=== PATIENT | female | born 1945 | race Two or more races ===

== ENCOUNTER 2022-04-24 15:41 | Outpatient (REF) | payer MEDICARE, MEDICAID, SELFPAY ==
[2022-04-24 17:01] LABS: Hematocrit 42.2 % (37.0-47.0); Hemoglobin 13.4 g/dl (12.0-16.0); Mean Corpuscular HGB Conc 31.8 g/dl (31.0-35.0); Mean Corpuscular Hemoglobin 27.9 pg (27.0-33.0); Mean Corpuscular Volume 87.9 fL (80.0-98.0); Mean Platelet Volume 8.8 fL (9.4-12.3); Platelet Count 293 X10*3/uL (160-400); Red Cell Distribution Width 13.7 % (11.0-16.0); White Blood Count 4.2 X10*3/uL (4.8-10.8)
[2022-04-24 17:11] LABS: INTERNATIONAL NORM RATIO 3.7 (0.9-1.1); Prothrombin Time 45.1 SEC (10.0-13.1)
[2022-04-24 17:27] LABS: Alanine Aminotransferase 26 U/L (0-31); Albumin Level 4.5 g/dL (3.5-5.0); Alkaline Phosphatase 90 U/L (39-117); Anion Gap 15 (12-20); Aspartate Amino Transferase 26 U/L (5-31); Bilirubin Direct 0.2 mg/dL (0.0-0.5); Bilirubin Total 0.4 mg/dL (0.0-1.0); Blood Urea Nitrogen 22 mg/dL (9-16); Calcium 9.9 mg/dL (8.4-10.2); Carbon Dioxide 30 mmol/L (22-29); Chloride 103 mmol/L (96-108); Estimated Glomerular Filt Rate > 60; Glucose Random 88 mg/dL (60-115); Potassium 4.6 mmol/L (3.3-5.1); Sodium 143 mmol/L (135-145); Total Protein 7.8 g/dL (6.5-8.0)
[2022-04-29 11:41] LABS: Lamotrigine Lamictal 1.9 mcg/mL (4.0-18.0)
== END 2022-04-24 15:42 | disposition home or self-care (01) ==
LOC: HO.LAB 15:41
PROVIDERS: PCP Internal Medicine; Visit Provider Family Medicine
DX: G40.909 Epilepsy, unspecified, not intractable, without status epilepticus (principal); I82.403 Acute embolism and thrombosis of unspecified deep veins of lower extremity, bilateral; Z93.2 Ileostomy status
CPT/HCPCS: 36415; 80048; 80076; 80175; 85027; 85610

== ENCOUNTER 2022-05-03 02:24 | Emergency (ER) | payer MEDICARE, SELFPAY ==
[2022-05-03 02:37] VITALS: BP 130/60; PULSE 80; RESP 17; TEMP 36.7; O2SAT 99; BMI 24.7
--- NOTE | 2022-05-03 02:38 | ED_ITS ---
HPI - Allergic Reaction General Chief complaint: Allergic Reaction Stated complaint: FACE/THROAT PAIN PER EMS Time Seen by Provider: 05/03/22 02:37 Source: patient Mode of arrival: EMS Limitations: no limitations History of Present Illness HPI narrative: 76 yo female with hx of DVT on coumadin, seizures, ileostomy here with c/o waking up and feeling her face was itchy and hot. She also feels like it is swelling - she denies any new exposures. She did move into a new apartment. She washed her clothes yesterday but used the same detergent - new washing machine. complaint: allergic reaction Onset (ago): minute(s) (just prior to arrival) Exposure: unknown Symptoms: rash, itching and facial swelling Severity: mild Treatment prior to arrival: none Previous Allergic Reaction History: none Related Data Previous Rx's Medication Instructions Recorded cetirizine 5 mg tablet 5 mg PO DAILY PRN allergy symptoms 05/03/22 #30 tabs Allergies Allergy/AdvReac Type Severity Reaction Status Date / Time Iodine and Iodide Containing Allergy Unknown ANAPHYLAXIS Verified 05/03/22 02:28 Produc [IODINE AND IODIDE CONTAINING PRODUC] Tetanus Vaccines and Toxoid Allergy Unknown UNK Verified 05/03/22 02:28 [TETANUS VACCINES AND TOXOID] IVP dye Allergy Unknown SOB, oral Uncoded 03/26/17 00:00 swelling tetanus Allergy Unknown severe Uncoded 03/26/17 00:00 local swelling Review of Systems Review of Systems: Constitutional : No Fever, No Chills ENT/Mouth : no oral swelling, No Hoarseness, No Swallowing Difficulty Eyes: No Eye Pain, No Swelling, No Redness Cardiovascular : No Chest Pain, No SOB Respiratory : No Cough, No Sputum, No Wheezing, No Smoke Exposure, No Dyspnea Gastrointestinal : No Nausea, No Vomiting, No Diarrhea, No abdominal Pain Genitourinary : No Dysuria, No Urinary Frequency, No Hematuria Musculoskeletal : No joint pain, No Myalgias, No Joint Swelling Skin : No Skin Lesions, positive rash Neuro : No Weakness, No Numbness, No Headache PMFSH Past Medical History Attestation statement: The following information was validated with the patient. Medical History DVT (deep venous thrombosis) Ileostomy in place Seizure Social History Social History (Updated 05/03/22 @ 02:46 by Brea [place], DO) Patient Tobacco Use Status: Never used Tobacco Physical Exam ED Vital Signs: Vital Signs - 24 hr 05/03/22 02:37 Temperature 98.1 F Pulse Rate 80 Respiratory Rate 17 Blood Pressure 130/60 Pulse Oximetry 99 Oxygen Delivery Method Room Air BMI result Body Mass Index 24.7 Appearance: Alert. Oriented X3. No acute distress. Eyes: Pupils equal, round and reactive to light. ENT: Pharynx normal. erythema on cheeks, eyelids, chin, neck - mild swelling Neck: Normal inspection. Neck supple. CVS: Normal heart rate and rhythm. Pulses normal. Respiratory: No respiratory distress. Breath sounds normal. Abdomen: Soft and nontender. Skin: Skin warm and dry. Normal skin color. Normal skin turgor. Extremities: No lower extremity edema. No calf ttp Neuro: Oriented X 3. No motor deficit. No sensory deficit. Course Course Course Narrative: feels better stable for DC MDM - Allergic Reaction MDM Narrative Medical decision making narrative: 76 yo female with hx of DVT on coumadin, seizures, ileostomy here with rash to face no oral swelling or resp issues - will give pred, pepcid, benadryl cannot think of cause though she is in new building could be chemical in washing machine. Dispo per improvement in ED. Discharge Plan Discharge Clinical Impression: Allergic reaction Qualifiers: Encounter type: initial encounter Qualified Code(s): T78.40XA - Allergy, unspecified, initial encounter Patient Disposition: Home, Self-Care Instructions: General Allergic Reaction (ED) Additional Instructions: return to ED for any worsening symptoms or concerns please monitor what you are using could be new washing machine Prescriptions: New cetirizine 5 mg tablet 5 mg PO DAILY PRN (Reason: allergy symptoms) Qty: 30 0RF
[2022-05-03] MEDS: predniSONE 20 MG TABLET PO (02:48)
[2022-05-03] MEDS: Famotidine 20 MG TABLET PO (02:48)
[2022-05-03] MEDS: diphenhydrAMINE HCL 25 MG TABLET PO (02:48)
== END 2022-05-03 06:29 | disposition home or self-care (01) ==
PROVIDERS: Emergency Provider Emergency Medicine
DX: L50.0 Allergic urticaria (principal); Z79.01 Long term (current) use of anticoagulants; Z79.899 Other long term (current) drug therapy
CPT/HCPCS: 99281; 99283; Q0163

== ENCOUNTER 2022-05-21 16:35 | Outpatient (REF) | payer MEDICARE, MEDICAID, SELFPAY ==
--- NOTE | ~2022-05-21 | US_ITS ---
EXAMINATION: US VENOUS ULTRASOUND WITH DOPPLER LOWER EXTREMITY, BILATERAL CLINICAL INFORMATION: History of blood clots and pain. COMPARISON: Lower extremity venous ultrasound 01/02/2020 TECHNIQUE: Ultrasound of the deep veins is performed from the hip to the calf with compression sonography and color and pulse Doppler assessment. Spectral analysis with color-flow imaging is performed. FINDINGS: RIGHT: Small hypoechoic nonocclusive thrombus that is incompletely pressed along the right popliteal vein. Otherwise, normal venous compression and respiratory variation and augmented flow. The visualized common femoral vein, superficial femoral vein, and profunda femoral vein shows no evidence of deep venous thrombosis. There is no significant popliteal fossa cyst. LEFT: Unable to fully compress left sided veins due to patient discomfort per technologist report. There is small amount of hypoechoic incompletely compressible thrombus in the popliteal vein. Otherwise, normal respiratory variation and augmented flow. The visualized common femoral vein, superficial femoral vein, profunda femoral vein show no evidence of deep venous thrombosis. There is no significant popliteal fossa cyst. If the patient's symptoms persist, followup ultrasound in 5 days 7 days might be of value to exclude proximal propagation from a non-visualized calf vein. US/US venous duplex LE BI IMPRESSION: 1. Exam positive for small amount of nonocclusive DVT in the right and left popliteal veins. This critical result was discussed with Dr. Maricel Ervin, the on-call covering physician at 6:20 PM on 02/02/2022 and it was ascertained that the content and urgency of the report was understood at the time of direct communication. The patient was sent to the emergency department at her request.
[2022-05-21 18:18] LABS: INTERNATIONAL NORM RATIO 4.2 (0.9-1.1); Prothrombin Time 51.4 SEC (10.0-13.1)
== END 2022-05-21 16:36 | disposition home or self-care (01) ==
LOC: HO.US 16:35
PROVIDERS: Internal Medicine Geriatric Medicine; Absent Provider Internal Medicine; PCP Internal Medicine; Visit Provider Emergency Medicine
DX: I82.403 Acute embolism and thrombosis of unspecified deep veins of lower extremity, bilateral (principal)
CPT/HCPCS: 36415; 85610; 93970

== ENCOUNTER 2022-05-21 18:18 | Emergency (ER) | payer MEDICARE, MEDICAID, SELFPAY ==
[2022-05-21 19:25] VITALS: BP 135/75; PULSE 66; RESP 18; TEMP 36.8; O2SAT 99; BMI 26.9
[2022-05-21 20:35] LABS: MANUAL DIFF FLAG NO
[2022-05-21 20:37] LABS: Basophils Percent Auto 0.3 % (0-2); Eosinophils Absolute Auto 0.2 X10*3/uL (0.0-0.4); Eosinophils Percent Auto 4.4 % (0-4); Hematocrit 44.7 % (37.0-47.0); Imm Gran Abs Auto 0.01 X10*3/uL (0.00-0.03); Imm Gran Pct Auto 0.3 % (0.0-0.4); Lymphocytes Absolute Auto 0.7 X10*3/uL (1.2-4.9); Lymphocytes Percent Auto 17.4 % (20-40); Mean Corpuscular HGB Conc 31.3 g/dl (31.0-35.0); Mean Corpuscular Hemoglobin 26.7 pg (27.0-33.0); Mean Corpuscular Volume 85.3 fL (80.0-98.0); Mean Platelet Volume 9.1 fL (9.4-12.3); Monocytes Absolute Auto 0.4 X10*3/uL (0.1-1.2); Monocytes Percent Auto 9.8 % (2-11); Neutrophils Absolute Auto 2.6 x10*3/uL (2.0-8.3); Neutrophils Percent Auto 67.8 % (45-73); Platelet Count 257 X10*3/uL (160-400); Red Blood Count 5.24 X10*6/uL (4.20-5.50); Red Cell Distribution Width 14.1 % (11.0-16.0); White Blood Count 3.9 X10*3/uL (4.8-10.8)
[2022-05-21 20:40] LABS: D Dimer High Sensitivity 166 NG/ML
[2022-05-21 20:52] LABS: Anion Gap 17 (12-20); Blood Urea Nitrogen 20 mg/dL (9-16); Calcium 9.8 mg/dL (8.4-10.2); Carbon Dioxide 25 mmol/L (22-29); Chloride 103 mmol/L (96-108); Estimated Glomerular Filt Rate > 60; Glucose Random 81 mg/dL (60-115); Potassium 4.6 mmol/L (3.3-5.1); Sodium 140 mmol/L (135-145)
[2022-05-21 21:08] LABS: Troponin-I High Sensitivity < 3.5 ng/L (<3.5-17.0)
--- NOTE | 2022-05-22 08:03 | ED.GENADULT ---
HPI - General Adult General Chief complaint: General Medical Stated complaint: +DVT on both legs Time Seen by Provider: 05/22/22 07:58 Source: patient Mode of arrival: ambulatory Limitations: no limitations History of Present Illness HPI narrative: Patient is a 76 year old female presenting to the emergency department today with bilateral lower leg pain. Patient states that she was sent in today by her doctor from the clinic because an ultrasound showed bilateral blood clots in her legs. Patient states that she is already on Coumadin and the last time this happened, she was switched to lovonox. Patient denies any dizziness, lightheadedness, abdominal pain, nausea, vomiting, fever, chills, blurry vision, double vision, loss of vision, chest pain, difficulty breathing, shortness of breath, back pain, night sweats, pain with urination, increased urinary frequency, increased urinary urgency, blood in her urine or stool, syncope or a near syncopal episode, recent trauma or falls, bowel incontinence, bladder incontinence, bowel retention, bladder retention, or any other complaints at this time. Location: left, right and lower extremity Radiation: non-radiation Severity: mild Severity scale (1-10): 3 Quality: dull Pain Consistency: constant Relieving factors: none Exacerbating factors: none Associated symptoms: denies other symptoms Treatments prior to arrival: none Related Data Previous Rx's Medication Instructions Recorded cetirizine 5 mg tablet 5 mg PO DAILY PRN allergy symptoms 05/03/22 #30 tabs enoxaparin 30 mg/0.3 mL 63 mg (0.63 mL) subcut Q12H #3 mL 05/22/22 subcutaneous syringe (Lovenox) Allergies Allergy/AdvReac Type Severity Reaction Status Date / Time Iodine and Iodide Containing Allergy Unknown ANAPHYLAXIS Verified 05/03/22 02:28 Produc [IODINE AND IODIDE CONTAINING PRODUC] Tetanus Vaccines and Toxoid Allergy Unknown UNK Verified 05/03/22 02:28 [TETANUS VACCINES AND TOXOID] IVP dye Allergy Unknown SOB, oral Uncoded 03/26/17 00:00 swelling tetanus Allergy Unknown severe Uncoded 03/26/17 00:00 local swelling Review of Systems Constitutional: Constitutional: Reports no additional constitutional complaints, Denies chills, Denies fever(s) and Denies night sweats Eyes: Eyes: Reports no additional eye complaints, Denies blurry vision, Denies change in vision, Denies diplopia, Denies eye discharge, Denies loss of vision and Denies eye pain ENT: Denies dizziness Cardiovascular: Cardiovascular: Reports no additional cardiovascular complaints, Denies chest pain, Denies lightheadedness, Denies Loss of Consciousness and Denies dyspnea Respiratory: Respiratory: Reports no additional respiratory complaints and Denies dyspnea Gastrointestinal: Gastrointestinal: Reports no additional gastrointestinal complaints, Denies abdominal pain, Denies melena, Denies hematochezia, Denies change in bowel habits and Denies change in stool character Genitourinary: Genitourinary: Denies hematuria, Denies urinary frequency, Denies dysuria, Denies urinary incontinence, Denies urinary hesitancy and Denies urinary urgency Musculoskeletal: Musculoskeletal: Reports no additional musculoskeletal complaints, Denies numbness and Denies tingling Comments: bilateral lower leg pain Neurologic: Denies dizziness, Denies loss of vision, Denies numbness and Denies tingling Psychiatric: Psychiatric: Reports no additional psychiatric complaints Endocrine: Endocrine: Reports no additional endocrine complaints Hematologic/Lymphatic: Hematologic/Lymphatic: Reports no additional hematologic/lymphatic complaints Allergic/Immunologic: Allergic/Immunologic: Reports no additional allergic/immunologic complaints PMFSH Past Medical History Attestation statement: The following information was validated with the patient. Source: old records reviewed Medical History DVT (deep venous thrombosis) Ileostomy in place Seizure Social History Social History Patient Tobacco Use Status: Never used Tobacco Advance Directives: No Advance Directives Information Provided: Yes Physical Exam ED Vital Signs: Vital Signs - 24 hr 05/21/22 19:25 Temperature 98.2 F Pulse Rate 66 Respiratory Rate 18 Blood Pressure 135/75 Pulse Oximetry 99 Oxygen Delivery Method Room Air BMI result Body Mass Index 26.9 Const General: cooperative, no acute distress, alert and awake Nutritional Appearance: well nourished Orientation/consciousness: patient oriented x3 Limitations: no limitations HENMT Head: Yes normal to inspection and Yes atraumatic Ears: hearing grossly normal bilaterally and external ears normal General nose exam: Normal external nose present, no nasal discharge noted and no epistaxis Face and sinus: Yes normal facial exam, No abrasion and No laceration Mouth: Normal oral and palatal mucosa present, no drooling and no muffled voice Eyes General: appearance normal, both eyes and all related structures Periorbital: periorbital findings normal Eyelids: Yes eyelids normal Conjunctivae: conjunctivae normal Pupils: Equal, round and reactive pupils present EOM: EOMs intact bilaterally Neck Neck: Yes normal visual inspection, Yes full ROM and Yes no lymphadenopathy Chest Chest palpation & inspection: normal inspection of the chest Resp Effort & Inspection: normal respiratory effort Auscultation: clear to auscultation bilaterally Cardio Rate: regular rate Rhythm: regular rhythm GI Inspection: Yes normal to inspection Neuro General: patient oriented x3 and moves all extremities Cranial nerves: Yes Equal, round and reactive pupils present Cognition (Neuro): normal cognition Motor exam (neuro): 5/5 motor strength present throughout Sensory Exam: Normal double simultaneous stimulation for sensation Coordination: [id number] test normal Extrem Other: bilateral lower leg erythema General: Yes full ROM and Yes capillary refill normal Psych Appearance: grossly normal Mental Status: mental status grossly normal Affect: normal affect Attitude: cooperative Thought process: Normal thought process present Thought content: Normal thought content present Insight: Good insight present (Psych) Medical Decision Making MDM Narrative Medical decision making narrative: Patient is a 76 year old female presenting to the emergency department today with bilateral DVTs in her lower legs. Patient's physical exam showed erythema to the lower legs but was otherwise unremarkable. Patient's blood work showed an INR of 4.1 but it was otherwise unremarkable. Patient's bilateral lower leg US from yesterday showed small amount of non occlusive DVT in the right and left popliteal veins. Spoke to the casino floor supervisor convertible top installer who recommended the patient stop Coumadin and be started on lovenox 1mg/kg BID with follow up with the patient's casino floor supervisor within 1 week. I explained my physical exam findings as well as all test results to the patient. I answered all questions asked by the patient. I stressed the importance of the patient taking her medication as prescribed. I stressed the importance of the patient following up with her primary care provider and her casino floor supervisor. I stressed the importance of the patient returning to the emergency department immediately if her symptoms were to worsen or if she were to develop any dizziness, shortness of breath, difficulty breathing, chest pain, blurry vision, loss of vision, nausea, vomiting, abdominal pain, fever, chills, back pain, or any other complaints. Patient verbalized agreement and understanding with this treatment plan and discharge. Medical Records Medical records reviewed: Yes I reviewed the patient's medical records. Lab Data Lab results reviewed: Yes I reviewed the patient's lab results. Result diagrams: 05/21/22 19:42 05/21/22 19:42 Labs: Lab Results 05/21/22 05/21/22 05/21/22 Range/Units 19:42 19:42 19:42 WBC 3.9 L (4.8-10.8) X10*3/uL RBC 5.24 (4.20-5.50) X10*6/uL Hgb 14.0 (12.0-16.0) g/dl Hct 44.7 (37.0-47.0) % MCV 85.3 (80.0-98.0) fL MCH 26.7 L (27.0-33.0) pg MCHC 31.3 (31.0-35.0) g/dl RDW 14.1 (11.0-16.0) % Plt Count 257 (160-400) X10*3/uL MPV 9.1 L (9.4-12.3) fL Immature Gran % (Auto) 0.3 (0.0-0.4) % Neut % (Auto) 67.8 (45-73) % Lymph % (Auto) 17.4 L (20-40) % Barber % (Auto) 9.8 (2-11) % Eos % (Auto) 4.4 H (0-4) % Baso % (Auto) 0.3 (0-2) % Lymph # (Auto) 0.7 L (1.2-4.9) X10*3/uL Barber # (Auto) 0.4 (0.1-1.2) X10*3/uL Eos # (Auto) 0.2 (0.0-0.4) X10*3/uL Baso # (Auto) 0.0 (0.0-0.2) X10*3/uL Abs Immat Gran (auto) 0.01 (0.00-0.03) X10*3/uL Absolute Neuts (auto) 2.6 (2.0-8.3) x10*3/uL Absolute Nucleated RBC 0.000 (0.0-0.012) X10*3/uL Nucleated RBC % (auto) 0.0 (0.0-0.2) /100WBC PT 50.5 H (10.0-13.1) SEC INR 4.1 H (0.9-1.1) D-Dimer High Sensitivty 166 NG/ML Sodium 140 (135-145) mmol/L Potassium 4.6 (3.3-5.1) mmol/L Chloride 103 (96-108) mmol/L Carbon Dioxide 25 (22-29) mmol/L Anion Gap 17 (12-20) BUN 20 H (9-16) mg/dL Creatinine 0.79 (0.5-1.4) mg/dL Estim Creat Clear Calc 50.0 Estimated GFR > 60 Random Glucose 81 (60-115) mg/dL Calcium 9.8 (8.4-10.2) mg/dL Total Bilirubin 0.2 (0.0-1.0) mg/dL Direct Bilirubin < 0.2 (0.0-0.5) mg/dL AST 31 (5-31) U/L ALT 20 (0-31) U/L Alkaline Phosphatase 96 (39-117) U/L Troponin I High Sens (<3.5-17.0) ng/L Total Protein 8.2 H (6.5-8.0) g/dL Albumin 4.7 (3.5-5.0) g/dL 05/21/22 Range/Units 19:42 WBC (4.8-10.8) X10*3/uL RBC (4.20-5.50) X10*6/uL Hgb (12.0-16.0) g/dl Hct (37.0-47.0) % MCV (80.0-98.0) fL MCH (27.0-33.0) pg MCHC (31.0-35.0) g/dl RDW (11.0-16.0) % Plt Count (160-400) X10*3/uL MPV (9.4-12.3) fL Immature Gran % (Auto) (0.0-0.4) % Neut % (Auto) (45-73) % Lymph % (Auto) (20-40) % Barber % (Auto) (2-11) % Eos % (Auto) (0-4) % Baso % (Auto) (0-2) % Lymph # (Auto) (1.2-4.9) X10*3/uL Barber # (Auto) (0.1-1.2) X10*3/uL Eos # (Auto) (0.0-0.4) X10*3/uL Baso # (Auto) (0.0-0.2) X10*3/uL Abs Immat Gran (auto) (0.00-0.03) X10*3/uL Absolute Neuts (auto) (2.0-8.3) x10*3/uL Absolute Nucleated RBC (0.0-0.012) X10*3/uL Nucleated RBC % (auto) (0.0-0.2) /100WBC PT (10.0-13.1) SEC INR (0.9-1.1) D-Dimer High Sensitivty NG/ML Sodium (135-145) mmol/L Potassium (3.3-5.1) mmol/L Chloride (96-108) mmol/L Carbon Dioxide (22-29) mmol/L Anion Gap (12-20) BUN (9-16) mg/dL Creatinine (0.5-1.4) mg/dL Estim Creat Clear Calc Estimated GFR Random Glucose (60-115) mg/dL Calcium (8.4-10.2) mg/dL Total Bilirubin (0.0-1.0) mg/dL Direct Bilirubin (0.0-0.5) mg/dL AST (5-31) U/L ALT (0-31) U/L Alkaline Phosphatase (39-117) U/L Troponin I High Sens < 3.5 (<3.5-17.0) ng/L Total Protein (6.5-8.0) g/dL Albumin (3.5-5.0) g/dL Imaging Data Venous US: Attestation: I personally reviewed and interpreted this imaging study as follows: My impression: Bilateral popliteal DVTs Radiologist's impression: EXAMINATION:? US VENOUS ULTRASOUND WITH DOPPLER LOWER EXTREMITY, BILATERAL CLINICAL INFORMATION:? History of blood clots and pain. COMPARISON:? Lower extremity venous ultrasound 01/02/2020 TECHNIQUE: Ultrasound of the deep veins is performed from the hip to the calf with compression sonography and color and pulse Doppler assessment. Spectral analysis with color-flow imaging is performed. FINDINGS: RIGHT: Small hypoechoic nonocclusive thrombus that is incompletely pressed along the right popliteal vein. Otherwise, normal venous compression and respiratory variation and augmented flow. The visualized common femoral vein, superficial femoral vein, and profunda femoral vein shows no evidence of deep venous thrombosis. ? There is no significant popliteal fossa cyst. LEFT: Unable to fully compress left sided veins due to patient discomfort per technologist report. There is small amount of hypoechoic incompletely compressible thrombus in the popliteal vein. Otherwise, normal respiratory variation and augmented flow. The visualized common femoral vein, superficial femoral vein, profunda femoral vein show no evidence of deep venous thrombosis. ? There is no significant popliteal fossa cyst. If the patient's symptoms persist, followup ultrasound in 5 days 7 days might be of value to exclude proximal propagation from a non-visualized calf vein. US/US venous duplex LE BI IMPRESSION: ? 1. Exam positive for small amount of nonocclusive DVT in the right and left popliteal veins. ? This critical result was discussed with Dr. Maricel Ervin, the on-call covering physician at 6:20 PM on 02/02/2022 and it was ascertained that the content and urgency of the report was understood at the time of direct communication. The patient was sent to the emergency department at her request. Dictated By: Luis Manuel Rodas Signed By: Electronically signed by Luis Manuel Rodas 05/21/22 1823 Discharge Plan Discharge Clinical Impression: DVT (deep venous thrombosis) Patient Disposition: Home, Self-Care Instructions: Deep Vein Thrombosis (ED) Additional Instructions: STOP taking your Coumadin. Follow up with your casino floor supervisor (blood doctor) in 1 week Follow up with your primary care provider. Return to the emergency department immediately if your symptoms worsen or if you develop any dizziness, shortness of breath, difficulty breathing, chest pain, blurry vision, loss of vision, nausea, vomiting, abdominal pain, fever, chills, back pain, or any other complaints. Prescriptions: New enoxaparin [Lovenox] 30 mg/0.3 mL syringe 63 mg subcut Q12H Qty: 3 0RF No Action cetirizine 5 mg tablet 5 mg PO DAILY PRN (Reason: allergy symptoms) Qty: 30 0RF Referrals: [facility] [place]] (Call to establish and follow up with a primary care provider. If you already have a primary care provider, please follow up with them. ) [facility] [place] [facility] [Provider Group] (Call to establish and follow up with a primary care provider. If you already have a primary care provider, please follow up with them. ) [facility] [place] [facility] [Provider Group] (Call to establish and follow up with a primary care provider. If you already have a primary care provider, please follow up with them. ) Interventions: ED Discharge Assessment Last Done: 05/22/22 10:12 Discharge Date/Time: 05/22/22 10:22 Print Language: Tajik
[2022-05-22 08:35] LABS: Alanine Aminotransferase 20 U/L (0-31); Albumin Level 4.7 g/dL (3.5-5.0); Alkaline Phosphatase 96 U/L (39-117); Aspartate Amino Transferase 31 U/L (5-31); Bilirubin Direct < 0.2 mg/dL (0.0-0.5); Bilirubin Total 0.2 mg/dL (0.0-1.0); Total Protein 8.2 g/dL (6.5-8.0)
[2022-05-22 09:05] LABS: INTERNATIONAL NORM RATIO 4.1 (0.9-1.1); Prothrombin Time 50.5 SEC (10.0-13.1)
== END 2022-05-22 10:22 | disposition home or self-care (01) ==
PROVIDERS: Physician Assistant Medical; Emergency Provider Emergency Medicine Emergency Medical Services
DX: I82.433 Acute embolism and thrombosis of popliteal vein, bilateral (principal); M79.662 Pain in left lower leg; M79.661 Pain in right lower leg; Z79.899 Other long term (current) drug therapy
CPT/HCPCS: 36415; 80048; 80076; 84484; 85025; 85379; 85610; 99282; 99283

== ENCOUNTER → 2022-05-27 13:45 | Outpatient (BNVA) | payer MEDICARE, MEDICAID, SELFPAY | PROVIDERS: PCP Registered Nurse; Visit Provider Internal Medicine | DX: I82.403 Acute embolism and thrombosis of unspecified deep veins of lower extremity, bilateral (principal); Z79.01 Long term (current) use of anticoagulants; Z51.81 Encounter for therapeutic drug level monitoring | CPT/HCPCS: 85610; 99202 ==

== ENCOUNTER → 2022-05-29 13:48 | Outpatient (BNVA) | payer MEDICARE, MEDICAID, SELFPAY | PROVIDERS: PCP Registered Nurse; Visit Provider Internal Medicine | DX: I82.403 Acute embolism and thrombosis of unspecified deep veins of lower extremity, bilateral (principal); Z79.01 Long term (current) use of anticoagulants; Z51.81 Encounter for therapeutic drug level monitoring | CPT/HCPCS: 85610; 99211 ==

== ENCOUNTER 2022-05-30 12:00 | Emergency (ER) | payer MEDICARE, MEDICAID, SELFPAY ==
--- NOTE | ~2022-05-30 | CT_ITS ---
EXAMINATION: CT OF THE HEAD WITHOUT CONTRAST and chest one view PORTABLE CLINICAL INFORMATION: Dizziness COMPARISON: None. TECHNIQUE: Noncontrast CT scan of the head was obtained from the base of the skull to the vertex. Chest portable semiupright view This CT examination was performed using dose optimization techniques as appropriate, variously including the following: *Automated exposure control *Adjustment of mA and/or kV according to patient size (this includes techniques or standardized protocols for targeted exams where dose is matched to indication/reason for exam; i.e. extremities or head) *Use of iterative reconstruction technique DLP: 571 mGy-cm FINDINGS: Lungs are clear. Heart images are normal. No infiltrate or CHF. No pleural disease. No ectopic air. The ventricles and cisterns are normal in size, shape and configuration. Chronic white matter ischemic changes. No acute findings. There are no extra-axial surface collections or evidence of hemorrhage. Midline structures are central. The rao/white differentiation is maintained. The orbits appear normal bilaterally. The paranasal sinuses are clear. No fractures are seen. CT/CT head/brain wo IV con IMPRESSION: No active chest disease. No acute intracranial abnormality.
[2022-05-30 12:32] VITALS: BP 114/76; PULSE 88; O2SAT 98; BMI 26.4
[2022-05-30 13:19] VITALS: BP 113/55; PULSE 70; RESP 18; TEMP 36.9; O2SAT 99
--- NOTE | 2022-05-30 13:29 | ECG_ITS ---
Test Reason : DIZZINESS Blood Pressure : / mmHG Vent. Rate : 068 BPM Atrial Rate : 068 BPM P-R Int : 162 ms QRS Dur : 086 ms QT Int : 372 ms P-R-T Axes : 043 019 024 degrees QTc Int : 395 ms Normal sinus rhythm Normal ECG No previous ECGs available Referred By: Ines Garcia Electronically Signed By:MANUELA ANDREW MD
--- NOTE | 2022-05-30 13:58 | ED.GENADULT ---
HPI - General Adult General Chief complaint: Dizziness <KRYSTLE Funez Last Filed: 05/30/22 17:39> Stated complaint: dizziness <KRYSTLE Funez Last Filed: 05/30/22 17:39> Time Seen by Provider: 05/30/22 12:20 <KRYSTLE Funez Last Filed: 05/30/22 17:39> Source: patient <KRYSTLE Funez Last Filed: 05/30/22 17:39> Mode of arrival: ambulatory <KRYSTLE Funez Last Filed: 05/30/22 17:39> History of Present Illness HPI narrative: 76-year-old female with a past medical history of bilateral DVT on Lovenox, seizure, ileostomy, presenting to the ED via EMS complaining of sudden onset dizziness while in the kitchen this morning around 9:00AM, states symptoms lasted few seconds with symptomatic improvement at present. Denies associated headache, vision change/loss, nausea/vomiting, weakness, abdominal pain, numbness, tingling <KRYSTLE Funez Last Filed: 05/30/22 17:39> Onset (ago): hour(s) <KRYSTLE Funez Last Filed: 05/30/22 17:39> Related Data Home medications: Home Medications Medication Instructions Recorded Confirmed lamotrigine 25 mg tablet 25 mg PO BID 05/27/22 05/27/22 warfarin 5 mg tablet 5 mg PO DAILY 05/27/22 05/29/22 Previous Rx's Medication Instructions Recorded enoxaparin 30 mg/0.3 mL 63 mg subcut Q12H #3 mL 05/22/22 subcutaneous syringe (Lovenox) <KRYSTLE Funez Last Filed: 05/30/22 17:39> Allergies/adverse reactions: Allergies Allergy/AdvReac Type Severity Reaction Status Date / Time Iodine and Iodide Containing Allergy Unknown ANAPHYLAXIS Verified 05/29/22 13:51 Produc [IODINE AND IODIDE CONTAINING PRODUC] Tetanus Vaccines and Toxoid Allergy Unknown UNK Verified 05/29/22 13:51 [TETANUS VACCINES AND TOXOID] IVP dye Allergy Unknown SOB, oral Uncoded 05/29/22 13:51 swelling tetanus Allergy Unknown severe Uncoded 05/29/22 13:51 local swelling <KRYSTLE Funez - Last Filed: 05/30/22 17:39> Review of Systems Review of Systems: Constitutional: No Fever, No Chills, No Night Sweats, No Fatigue, No Malaise ENT/Mouth: No Ear Pain, No sore throat, No Rhinorrhea, No Swallowing Difficulty Eyes: No Eye Pain, No Swelling, No Redness, No Discharge, No Vision Changes Cardiovascular: No Chest Pain, No SOB, No Dyspnea on Exertion, No Orthopnea, No Edema, No Palpitations Respiratory: No Cough, No Sputum, No Wheezing, No Dyspnea Gastrointestinal: No Nausea, No Vomiting, No Diarrhea, No Constipation, No Abdominal pain Genitourinary: No Dysuria, No Urinary Frequency, No Hematuria, No Urinary Incontinence/retention, No Flank Pain Musculoskeletal: No joint pain, No Myalgias, No Joint Swelling Skin: No Skin Lesions, No rash Neuro: No Weakness, No Numbness, No Paresthesias, No Loss of Consciousness, + Dizziness, No Headache P <KRYSTLE Funez - Last Filed: 05/30/22 17:39> Yes all other systems are reviewed and are negative <KRYSTLE Funez - Last Filed: 05/30/22 17:39> Constitutional: Constitutional: Reports as per HPI <KRYSTLE Funez - Last Filed: 05/30/22 17:39> Neurologic: Denies Abnormal speech present <KRYSTLE Funez - Last Filed: 05/30/22 17:39> [facility] Past Medical History Attestation statement: The following information was validated with the patient. <KRYSTLE Funez - Last Filed: 05/30/22 17:39> Medical History: Medical History DVT (deep venous thrombosis) Ileostomy in place Seizure <KRYSTLE Funez - Last Filed: 05/30/22 17:39> Social History Social History: Social History Housing: Apartment Alcohol intake: never Patient Tobacco Use Status: Never used Tobacco Use of substances other than those prescribed or required for medical reasons: No Advance Directives: No Advance Directives Information Provided: No Current occupation: corporation secretary- retired Current occupational exposures/hazards: No <KRYSTLE Funez Last Filed: 05/30/22 17:39> Physical Exam ED Vital Signs: Vital Signs - 24 hr 05/30/22 13:19 05/30/22 18:39 05/30/22 18:41 Temperature 98.4 F 97.4 F Pulse Rate 70 69 69 Respiratory Rate 18 18 Blood Pressure 113/55 L 132/66 132/66 Pulse Oximetry 99 98 Oxygen Delivery Method Room Air Room Air 05/30/22 18:44 05/30/22 18:46 Temperature Pulse Rate 78 78 Respiratory Rate Blood Pressure 151/78 H 150/81 H Pulse Oximetry Oxygen Delivery Method BMI result Body Mass Index 26.4 <KRYSTLE Funez Last Filed: 05/30/22 17:39> Vital Signs - 24 hr 05/30/22 13:19 05/30/22 18:39 05/30/22 18:41 Temperature 98.4 F 97.4 F Pulse Rate 70 69 69 Respiratory Rate 18 18 Blood Pressure 113/55 L 132/66 132/66 Pulse Oximetry 99 98 Oxygen Delivery Method Room Air Room Air 05/30/22 18:44 05/30/22 18:46 Temperature Pulse Rate 78 78 Respiratory Rate Blood Pressure 151/78 H 150/81 H Pulse Oximetry Oxygen Delivery Method BMI result Body Mass Index 26.4 <KRYSTLE Conti - Last Filed: 05/30/22 18:51> Const General: cooperative, healthy appearing and no acute distress <KRYSTLE Funez Last Filed: 05/30/22 17:39> Orientation/consciousness: patient oriented x3 <KRYSTLE Funez Last Filed: 05/30/22 17:39> Limitations: no limitations <KRYSTLE Funez Last Filed: 05/30/22 17:39> HENMT Head: Yes normal to inspection and Yes atraumatic <KRYSTLE Funez Last Filed: 05/30/22 17:39> Ears: hearing grossly normal bilaterally <KRYSTLE Funez Last Filed: 05/30/22 17:39> General nose exam: Normal external nose present <KRYSTLE Funez Last Filed: 05/30/22 17:39> Face and sinus: Yes normal facial exam <Ines Garcia PA - Last Filed: 05/30/22 17:39> Throat: Yes posterior oropharynx normal, Yes tonsils normal and Yes uvula midline <Ines Garcia PA - Last Filed: 05/30/22 17:39> Eyes General: appearance normal, both eyes and all related structures <Ines Garcia PA - Last Filed: 05/30/22 17:39> Pupils: Equal, round and reactive pupils present <Ines Garcia PA - Last Filed: 05/30/22 17:39> EOM: EOMs intact bilaterally <Ines Garcia PA - Last Filed: 05/30/22 17:39> Neck Neck: Yes normal visual inspection, Yes no meningeal signs and Yes supple <Ines Garcia PA - Last Filed: 05/30/22 17:39> Resp Effort & Inspection: normal respiratory effort and no respiratory distress <Ines Garcia PA - Last Filed: 05/30/22 17:39> Auscultation: clear to auscultation bilaterally, no crackles, no rales, no rhonchi and no wheezes <Ines Garcia PA - Last Filed: 05/30/22 17:39> Cardio Rate: regular rate <Ines Garcia PA - Last Filed: 05/30/22 17:39> Heart sounds: S1 normal heart sound present and S2 normal heart sound present <Ines Garcia PA - Last Filed: 05/30/22 17:39> Peripheral pulses: Peripheral pulses 2+ throughout <Ines Garcia PA - Last Filed: 05/30/22 17:39> GI Other: Ileostomy in place <Ines Garcia PA - Last Filed: 05/30/22 17:39> Inspection: Yes normal to inspection <Ines Garcia PA - Last Filed: 05/30/22 17:39> Palpation (GI): Soft to palpation, nontender, no guarding and not rigid <Ines Garcia PA - Last Filed: 05/30/22 17:39> Skin Rashes: no rashes <Ines Garcia PA - Last Filed: 05/30/22 17:39> Wounds: no wounds <Ines Yrnlouisat, PA - Last Filed: 05/30/22 17:39> Neuro General: patient oriented x3, gait normal, tone normal, moves all extremities, no meningeal signs, no focal motor deficits and CN's II-XI intact bilaterally <Ines Yrnlouisat, PA - Last Filed: 05/30/22 17:39> Cranial nerves: Yes CN's II-XII intact bilaterally, Yes Equal, round and reactive pupils present and Yes Bilaterally intact EOM present <Ines Pouliot, PA - Last Filed: 05/30/22 17:39> Cognition (Neuro): normal cognition <Ines Pouliot, PA - Last Filed: 05/30/22 17:39> Speech: No Abnormal speech present <Ines Pouliot, PA - Last Filed: 05/30/22 17:39> Gait exam (Neuro): Normal gait present <Ines Poullouisat PA - Last Filed: 05/30/22 17:39> Motor exam (neuro): 5/5 motor strength present throughout, Pronator motor function not present and no tremor noted <Ines Pouliot, PA - Last Filed: 05/30/22 17:39> Coordination: [id number] test normal <Ines Poullouisat PA - Last Filed: 05/30/22 17:39> Romberg Test: Negative <Ines Poullouisat, PA - Last Filed: 05/30/22 17:39> Extrem Other: + bilateral lower extremity pitting edema with mild tenderness (baseline per patient from DVT's). Distal pulses intact <Ines Garcia PA - Last Filed: 05/30/22 17:39> Course Course Course Narrative: -1536--chronic leukopenia. Labs otherwise the patient's baseline. Troponin negative -UA with blood, not infected CT head/brain wo IV con IMPRESSION: No active chest disease. No acute intracranial abnormality. XR chest 1V IMPRESSION: No active chest disease. No acute intracranial abnormality. -1617--on re-evaluation patient reports symptomatic resolution, asymptomatic at present. Will obtain orthostatics and repeat troponin, if negative plan for DC home -1800-- ED care transferred to KRYSTLE Sam pending repeat trop and orthostatic vitals and anticipated d/c home Results discussed with patient including worrisome signs and symptoms and strict return precautions, and when to return to the emergency department. They verbalized understanding and feel safe for discharge at this time. <KRYSTLE Funez - Last Filed: 05/30/22 17:39> Reevaluation(s) Reevaluation #1: 18:50 - 2nd troponin is negative. Her orthostatic vital signs are negative. Patient continues to feel well and asymptomatic at this time. She would like to go home. Plan for discharge home with close outpatient follow-up. <KRYSTLE Conti - Last Filed: 05/30/22 18:51> Medical Decision Making MDM Narrative Medical decision making narrative: 76-year-old female with a past medical history of bilateral DVT on Lovenox, seizure, ileostomy, presenting to the ED via EMS complaining of sudden onset dizziness while in the kitchen this morning around 9:00AM, states symptoms lasted few seconds with symptomatic improvement at present. On exam vital signs stable, NAD, asymptomatic at present, no focal neuro deficits, ambulating with steady gait, no ataxia. Concern for ICH vs metabolic/infectious etiology. Low suspicion for CVA/TIA. R/o ACS Plan: EKG, labs, CXR, head CT, IVF, orthostatic vital signs, re-evaluate <KRYSTLE Funez - Last Filed: 05/30/22 17:39> Medical Records Medical records reviewed: Yes I reviewed the patient's medical records. <KRYSTLE Funez - Last Filed: 05/30/22 17:39> Lab Data Lab results reviewed: Yes I reviewed the patient's lab results. <KRYSTLE Funez - Last Filed: 05/30/22 17:39> Result diagrams: : 05/30/22 14:46 05/30/22 14:46 <KRYSTLE Funez - Last Filed: 05/30/22 17:39> Labs: Lab Results 05/30/22 05/30/22 05/30/22 Range/Units 14:46 14:46 14:46 WBC 3.9 L (4.8-10.8) X10*3/uL RBC 4.67 (4.20-5.50) X10*6/uL Hgb 12.7 (12.0-16.0) g/dl Hct 39.5 (37.0-47.0) % MCV 84.6 (80.0-98.0) fL MCH 27.2 (27.0-33.0) pg MCHC 32.2 (31.0-35.0) g/dl RDW 14.3 (11.0-16.0) % Plt Count 248 (160-400) X10*3/uL MPV 8.5 L (9.4-12.3) fL Immature Gran % (Auto) 0.3 (0.0-0.4) % Neut % (Auto) 68.2 (45-73) % Lymph % (Auto) 18.3 L (20-40) % [place] % (Auto) 9.4 (2-11) % Eos % (Auto) 3.3 (0-4) % Baso % (Auto) 0.5 (0-2) % Lymph # (Auto) 0.7 L (1.2-4.9) X10*3/uL [place] # (Auto) 0.4 (0.1-1.2) X10*3/uL Eos # (Auto) 0.1 (0.0-0.4) X10*3/uL Baso # (Auto) 0.0 (0.0-0.2) X10*3/uL Abs Immat Gran (auto) 0.01 (0.00-0.03) X10*3/uL Absolute Neuts (auto) 2.7 (2.0-8.3) x10*3/uL Absolute Nucleated RBC 0.000 (0.0-0.012) X10*3/uL Nucleated RBC % (auto) 0.0 (0.0-0.2) /100WBC Sodium 142 (135-145) mmol/L Potassium 4.4 (3.3-5.1) mmol/L Chloride 106 (96-108) mmol/L Carbon Dioxide 25 (22-29) mmol/L Anion Gap 15 (12-20) BUN 20 H (9-16) mg/dL Creatinine 0.81 (0.5-1.4) mg/dL Estim Creat Clear Calc 48.3 Estimated GFR > 60 Random Glucose 83 (60-115) mg/dL Calcium 9.2 D (8.4-10.2) mg/dL Magnesium 1.9 (1.6-2.6) mg/dL Total Bilirubin 0.3 (0.0-1.0) mg/dL Direct Bilirubin < 0.2 (0.0-0.5) mg/dL AST 24 (5-31) U/L ALT 22 (0-31) U/L Alkaline Phosphatase 76 D (39-117) U/L Troponin I High Sens < 3.5 (<3.5-17.0) ng/L B-Natriuretic Peptide 46 (<100) pg/mL Total Protein 6.9 (6.5-8.0) g/dL Albumin 4.1 (3.5-5.0) g/dL Urine Color Urine Appearance Urine pH (5.0-9.0) Ur Specific [place] (1.005-1.025) Urine Protein (Neg-Trace) mg/dL Urine Glucose (UA) (Negative) mg/dL Urine Ketones (Negative) mg/dL Urine Blood (Negative) Urine Nitrite (Negative) Ur Leukocyte Esterase (Negative) Urine RBC (0-2) /HPF Urine WBC (0-5) /HPF Ur Squamous Epith Cells (0-2) /HPF Urine Bacteria (None Seen) Hyaline Casts (0-2) /LPF COVID-19 (EMILY) (Negative) COVID-19 Clin Com 05/30/22 05/30/22 05/30/22 Range/Units 14:46 14:46 17:48 WBC (4.8-10.8) X10*3/uL RBC (4.20-5.50) X10*6/uL Hgb (12.0-16.0) g/dl Hct (37.0-47.0) % MCV (80.0-98.0) fL MCH (27.0-33.0) pg MCHC (31.0-35.0) g/dl RDW (11.0-16.0) % Plt Count (160-400) X10*3/uL MPV (9.4-12.3) fL Immature Gran % (Auto) (0.0-0.4) % Neut % (Auto) (45-73) % Lymph % (Auto) (20-40) % [place] % (Auto) (2-11) % Eos % (Auto) (0-4) % Baso % (Auto) (0-2) % Lymph # (Auto) (1.2-4.9) X10*3/uL [place] # (Auto) (0.1-1.2) X10*3/uL Eos # (Auto) (0.0-0.4) X10*3/uL Baso # (Auto) (0.0-0.2) X10*3/uL Abs Immat Gran (auto) (0.00-0.03) X10*3/uL Absolute Neuts (auto) (2.0-8.3) x10*3/uL Absolute Nucleated RBC (0.0-0.012) X10*3/uL Nucleated RBC % (auto) (0.0-0.2) /100WBC Sodium (135-145) mmol/L Potassium (3.3-5.1) mmol/L Chloride (96-108) mmol/L Carbon Dioxide (22-29) mmol/L Anion Gap (12-20) BUN (9-16) mg/dL Creatinine (0.5-1.4) mg/dL Estim Creat Clear Calc Estimated GFR Random Glucose (60-115) mg/dL Calcium (8.4-10.2) mg/dL Magnesium (1.6-2.6) mg/dL Total Bilirubin (0.0-1.0) mg/dL Direct Bilirubin (0.0-0.5) mg/dL AST (5-31) U/L ALT (0-31) U/L Alkaline Phosphatase (39-117) U/L Troponin I High Sens < 3.5 (<3.5-17.0) ng/L B-Natriuretic Peptide (<100) pg/mL Total Protein (6.5-8.0) g/dL Albumin (3.5-5.0) g/dL Urine Color Yellow Urine Appearance Clear Urine pH 6.0 (5.0-9.0) Ur Specific [place] 1.015 (1.005-1.025) Urine Protein Negative (Neg-Trace) mg/dL Urine Glucose (UA) Negative (Negative) mg/dL Urine Ketones Negative (Negative) mg/dL Urine Blood Moderate (2+) H (Negative) Urine Nitrite Negative (Negative) Ur Leukocyte Esterase Negative (Negative) Urine RBC 3-5 H (0-2) /HPF Urine WBC 0-5 (0-5) /HPF Ur Squamous Epith Cells 0-2 (0-2) /HPF Urine Bacteria None Seen (None Seen) Hyaline Casts 0-2 (0-2) /LPF COVID-19 (EMILY) Negative (Negative) COVID-19 Clin Com See Note <KRYTSLE Funez - Last Filed: 05/30/22 17:39> Lab Results 05/30/22 05/30/22 05/30/22 Range/Units 14:46 14:46 14:46 WBC 3.9 L (4.8-10.8) X10*3/uL RBC 4.67 (4.20-5.50) X10*6/uL Hgb 12.7 (12.0-16.0) g/dl Hct 39.5 (37.0-47.0) % MCV 84.6 (80.0-98.0) fL MCH 27.2 (27.0-33.0) pg MCHC 32.2 (31.0-35.0) g/dl RDW 14.3 (11.0-16.0) % Plt Count 248 (160-400) X10*3/uL MPV 8.5 L (9.4-12.3) fL Immature Gran % (Auto) 0.3 (0.0-0.4) % Neut % (Auto) 68.2 (45-73) % Lymph % (Auto) 18.3 L (20-40) % [place] % (Auto) 9.4 (2-11) % Eos % (Auto) 3.3 (0-4) % Baso % (Auto) 0.5 (0-2) % Lymph # (Auto) 0.7 L (1.2-4.9) X10*3/uL [place] # (Auto) 0.4 (0.1-1.2) X10*3/uL Eos # (Auto) 0.1 (0.0-0.4) X10*3/uL Baso # (Auto) 0.0 (0.0-0.2) X10*3/uL Abs Immat Gran (auto) 0.01 (0.00-0.03) X10*3/uL Absolute Neuts (auto) 2.7 (2.0-8.3) x10*3/uL Absolute Nucleated RBC 0.000 (0.0-0.012) X10*3/uL Nucleated RBC % (auto) 0.0 (0.0-0.2) /100WBC Sodium 142 (135-145) mmol/L Potassium 4.4 (3.3-5.1) mmol/L Chloride 106 (96-108) mmol/L Carbon Dioxide 25 (22-29) mmol/L Anion Gap 15 (12-20) BUN 20 H (9-16) mg/dL Creatinine 0.81 (0.5-1.4) mg/dL Estim Creat Clear Calc 48.3 Estimated GFR > 60 Random Glucose 83 (60-115) mg/dL Calcium 9.2 D (8.4-10.2) mg/dL Magnesium 1.9 (1.6-2.6) mg/dL Total Bilirubin 0.3 (0.0-1.0) mg/dL Direct Bilirubin < 0.2 (0.0-0.5) mg/dL AST 24 (5-31) U/L ALT 22 (0-31) U/L Alkaline Phosphatase 76 D (39-117) U/L Troponin I High Sens < 3.5 (<3.5-17.0) ng/L B-Natriuretic Peptide 46 (<100) pg/mL Total Protein 6.9 (6.5-8.0) g/dL Albumin 4.1 (3.5-5.0) g/dL Urine Color Urine Appearance Urine pH (5.0-9.0) Ur Specific [place] (1.005-1.025) Urine Protein (Neg-Trace) mg/dL Urine Glucose (UA) (Negative) mg/dL Urine Ketones (Negative) mg/dL Urine Blood (Negative) Urine Nitrite (Negative) Ur Leukocyte Esterase (Negative) Urine RBC (0-2) /HPF Urine WBC (0-5) /HPF Ur Squamous Epith Cells (0-2) /HPF Urine Bacteria (None Seen) Hyaline Casts (0-2) /LPF COVID-19 (EMILY) (Negative) COVID-19 Clin Com 05/30/22 05/30/22 05/30/22 Range/Units 14:46 14:46 17:48 WBC (4.8-10.8) X10*3/uL RBC (4.20-5.50) X10*6/uL Hgb (12.0-16.0) g/dl Hct (37.0-47.0) % MCV (80.0-98.0) fL MCH (27.0-33.0) pg MCHC (31.0-35.0) g/dl RDW (11.0-16.0) % Plt Count (160-400) X10*3/uL MPV (9.4-12.3) fL Immature Gran % (Auto) (0.0-0.4) % Neut % (Auto) (45-73) % Lymph % (Auto) (20-40) % [place] % (Auto) (2-11) % Eos % (Auto) (0-4) % Baso % (Auto) (0-2) % Lymph # (Auto) (1.2-4.9) X10*3/uL [place] # (Auto) (0.1-1.2) X10*3/uL Eos # (Auto) (0.0-0.4) X10*3/uL Baso # (Auto) (0.0-0.2) X10*3/uL Abs Immat Gran (auto) (0.00-0.03) X10*3/uL Absolute Neuts (auto) (2.0-8.3) x10*3/uL Absolute Nucleated RBC (0.0-0.012) X10*3/uL Nucleated RBC % (auto) (0.0-0.2) /100WBC Sodium (135-145) mmol/L Potassium (3.3-5.1) mmol/L Chloride (96-108) mmol/L Carbon Dioxide (22-29) mmol/L Anion Gap (12-20) BUN (9-16) mg/dL Creatinine (0.5-1.4) mg/dL Estim Creat Clear Calc Estimated GFR Random Glucose (60-115) mg/dL Calcium (8.4-10.2) mg/dL Magnesium (1.6-2.6) mg/dL Total Bilirubin (0.0-1.0) mg/dL Direct Bilirubin (0.0-0.5) mg/dL AST (5-31) U/L ALT (0-31) U/L Alkaline Phosphatase (39-117) U/L Troponin I High Sens < 3.5 (<3.5-17.0) ng/L B-Natriuretic Peptide (<100) pg/mL Total Protein (6.5-8.0) g/dL Albumin (3.5-5.0) g/dL Urine Color Yellow Urine Appearance Clear Urine pH 6.0 (5.0-9.0) Ur Specific [place] 1.015 (1.005-1.025) Urine Protein Negative (Neg-Trace) mg/dL Urine Glucose (UA) Negative (Negative) mg/dL Urine Ketones Negative (Negative) mg/dL Urine Blood Moderate (2+) H (Negative) Urine Nitrite Negative (Negative) Ur Leukocyte Esterase Negative (Negative) Urine RBC 3-5 H (0-2) /HPF Urine WBC 0-5 (0-5) /HPF Ur Squamous Epith Cells 0-2 (0-2) /HPF Urine Bacteria None Seen (None Seen) Hyaline Casts 0-2 (0-2) /LPF COVID-19 (EMILY) Negative (Negative) COVID-19 Clin Com See Note <KRYSTLE Conti - Last Filed: 05/30/22 18:51> Discharge Plan Discharge Clinical Impression: Dizziness <KRYSTLE Funez - Last Filed: 05/30/22 17:39> Patient Disposition: Home, Self-Care <KRYSTLE Funez - Last Filed: 05/30/22 17:39> Instructions: Dizziness (ED) <KRYSTLE Funez - Last Filed: 05/30/22 17:39> Additional Instructions: Your blood work and imaging studies were unremarkable Make sure you are staying hydrated at home. Past. PLEASE HAVE CLOSE FOLLOW-UP WITH HER DOCTOR. Continue home prescribed medications If symptoms persist or worsen, recur, headache, chest pain or shortness of breath return to the emergency department <KRYSTLE Funez - Last Filed: 05/30/22 17:39> Prescriptions: No Action enoxaparin [Lovenox] 30 mg/0.3 mL syringe 63 mg subcut Q12H Qty: 3 0RF Protocol: Dose Management Condition: Wednesday (Week One) Dose/Route: 2.5 mg Instruction: 0.5 x 5 mg milliliters Condition: Wednesday Dose/Route: 5 mg Instruction: 1 x 5 mg milliliter Condition: Wednesday Dose/Route: 5 mg Instruction: 1 x 5 mg milliliter Condition: Wednesday Dose/Route: 0 mg Instruction: 0 milliliters Condition: Dose/Route: 0 mg Instruction: 0 milliliters Condition: Wednesday Dose/Route: 5 mg Instruction: 1 x 5 mg milliliter Condition: Wednesday Dose/Route: 5 mg Instruction: 1 x 5 mg milliliter Condition: Wednesday () Dose/Route: 5 mg Instruction: 1 x 5 mg milliliter Condition: Wednesday Dose/Route: 5 mg Instruction: 1 x 5 mg milliliter Condition: Wednesday Dose/Route: 5 mg Instruction: 1 x 5 mg milliliter Condition: Wednesday Dose/Route: 5 mg Instruction: 1 x 5 mg milliliter Condition: Dose/Route: 5 mg Instruction: 1 x 5 mg milliliter Condition: Wednesday Dose/Route: 5 mg Instruction: 1 x 5 mg milliliter Condition: Wednesday Dose/Route: 5 mg Instruction: 1 x 5 mg milliliter Protocol Text: Adjustment Start Date: Wednesday05/29/22 INR Value: 1.4 INR Date: 05/29/22 Recheck Date: 06/01/22 Additional Instructions: take 5mg today, and wednesday no greens for 2 days, eat reds to raise inr lamotrigine 25 mg tablet 25 mg PO BID warfarin 5 mg tablet 5 mg PO DAILY Protocol: Dose Management Condition: Wednesday (Week One) Dose/Route: 2.5 mg Instruction: 0.5 x 5 mg milliliters Condition: Wednesday Dose/Route: 5 mg Instruction: 1 x 5 mg milliliter Condition: Wednesday Dose/Route: 5 mg Instruction: 1 x 5 mg milliliter Condition: Wednesday Dose/Route: 0 mg Instruction: 0 milliliters Condition: Dose/Route: 0 mg Instruction: 0 milliliters Condition: Wednesday Dose/Route: 5 mg Instruction: 1 x 5 mg milliliter Condition: Wednesday Dose/Route: 5 mg Instruction: 1 x 5 mg milliliter Condition: Wednesday () Dose/Route: 5 mg Instruction: 1 x 5 mg milliliter Condition: Wednesday Dose/Route: 5 mg Instruction: 1 x 5 mg milliliter Condition: Wednesday Dose/Route: 5 mg Instruction: 1 x 5 mg milliliter Condition: Wednesday Dose/Route: 5 mg Instruction: 1 x 5 mg milliliter Condition: Dose/Route: 5 mg Instruction: 1 x 5 mg milliliter Condition: Wednesday Dose/Route: 5 mg Instruction: 1 x 5 mg milliliter Condition: Wednesday Dose/Route: 5 mg Instruction: 1 x 5 mg milliliter Protocol Text: Adjustment Start Date: Wednesday05/29/22 INR Value: 1.4 INR Date: 05/29/22 Recheck Date: 06/01/22 Additional Instructions: take 5mg , and wednesday no greens for 2 days, eat reds to raise inr <KRYSTLE Funez - Last Filed: 05/30/22 17:39> Referrals: [facility] [Primary Care Provider] - 2 days <KRYSTLE Funez - Last Filed: 05/30/22 17:39>
[2022-05-30 14:59] LABS: MANUAL DIFF FLAG NO
[2022-05-30 15:03] LABS: Basophils Percent Auto 0.5 % (0-2); Eosinophils Absolute Auto 0.1 X10*3/uL (0.0-0.4); Eosinophils Percent Auto 3.3 % (0-4); Hematocrit 39.5 % (37.0-47.0); Hemoglobin 12.7 g/dl (12.0-16.0); Imm Gran Abs Auto 0.01 X10*3/uL (0.00-0.03); Imm Gran Pct Auto 0.3 % (0.0-0.4); Lymphocytes Absolute Auto 0.7 X10*3/uL (1.2-4.9); Lymphocytes Percent Auto 18.3 % (20-40); Mean Corpuscular HGB Conc 32.2 g/dl (31.0-35.0); Mean Corpuscular Hemoglobin 27.2 pg (27.0-33.0); Mean Corpuscular Volume 84.6 fL (80.0-98.0); Mean Platelet Volume 8.5 fL (9.4-12.3); Monocytes Absolute Auto 0.4 X10*3/uL (0.1-1.2); Monocytes Percent Auto 9.4 % (2-11); Neutrophils Absolute Auto 2.7 x10*3/uL (2.0-8.3); Neutrophils Percent Auto 68.2 % (45-73); Platelet Count 248 X10*3/uL (160-400); Red Blood Count 4.67 X10*6/uL (4.20-5.50); Red Cell Distribution Width 14.3 % (11.0-16.0); White Blood Count 3.9 X10*3/uL (4.8-10.8)
[2022-05-30 15:07] LABS: Appearance Urine Clear; Color Urine Yellow; Glucose Urine UA Negative (Negative); Leukocyte Esterase Urine Negative (Negative); Nitrite Urine Negative (Negative); Specific Gravity - Urine 1.015 (1.005-1.025); UMIC TRIGGER UACC YES; Urine Blood Moderate (2+) (Negative); Urine Ketones Negative (Negative); Urine Protein Negative (Neg-Trace)
[2022-05-30 15:20] LABS: COVID-19 Test Negative (Negative); IDNOW Serial# 16C4AD1C
[2022-05-30 15:22] LABS: Alanine Aminotransferase 22 U/L (0-31); Albumin Level 4.1 g/dL (3.5-5.0); Alkaline Phosphatase 76 U/L (39-117); Anion Gap 15 (12-20); Aspartate Amino Transferase 24 U/L (5-31); Bilirubin Direct < 0.2 mg/dL (0.0-0.5); Bilirubin Total 0.3 mg/dL (0.0-1.0); Blood Urea Nitrogen 20 mg/dL (9-16); Calcium 9.2 mg/dL (8.4-10.2); Carbon Dioxide 25 mmol/L (22-29); Chloride 106 mmol/L (96-108); Creatinine Clr Calc Pharmacy 48.3; Estimated Glomerular Filt Rate > 60; Glucose Random 83 mg/dL (60-115); Magnesium 1.9 mg/dL (1.6-2.6); Potassium 4.4 mmol/L (3.3-5.1); Sodium 142 mmol/L (135-145); Total Protein 6.9 g/dL (6.5-8.0)
[2022-05-30 15:25] LABS: Bacteria Urine None Seen (None Seen); Hyaline Casts Urine 0-2 /LPF (0-2); Squamous Epithelial Cell Urine 0-2 /HPF (0-2); WBC Urine 0-5 /HPF (0-5)
[2022-05-30 15:33] LABS: B Type Natriuretic Peptide 46 pg/mL (<100); Troponin-I High Sensitivity < 3.5 ng/L (<3.5-17.0)
[2022-05-30] MEDS: 0.9 % Sodium Chloride 1,000 ML 999 ML IV (16:08)
[2022-05-30 18:14] LABS: Troponin-I High Sensitivity < 3.5 ng/L (<3.5-17.0)
[2022-05-30 18:39] VITALS: BP 132/66; PULSE 69; RESP 18; TEMP 36.3; O2SAT 98
[2022-05-30 18:41] VITALS: BP 132/66; PULSE 69
[2022-05-30 18:44] VITALS: BP 151/78; PULSE 78
[2022-05-30 18:46] VITALS: BP 150/81; PULSE 78
== END 2022-05-30 19:40 | disposition home or self-care (01) ==
PROVIDERS: Physician Assistant; Emergency Provider Emergency Medicine
DX: R42 Dizziness and giddiness (principal); Z20.822 Contact with and (suspected) exposure to COVID-19; Z93.2 Ileostomy status; Z86.718 Personal history of other venous thrombosis and embolism; Z79.01 Long term (current) use of anticoagulants
CPT/HCPCS: 36415; 70450; 71045; 80048; 80076; 81001; 81003; 83735; 83880; 84484; 85025; 87635; 93005; 99284; 99285

== ENCOUNTER → 2022-06-01 13:27 | Outpatient (BNVA) | payer MEDICARE, MEDICAID, SELFPAY | PROVIDERS: PCP Registered Nurse; Visit Provider Internal Medicine | DX: I82.403 Acute embolism and thrombosis of unspecified deep veins of lower extremity, bilateral (principal); Z79.01 Long term (current) use of anticoagulants; Z51.81 Encounter for therapeutic drug level monitoring | CPT/HCPCS: 85610; 99212 ==

== ENCOUNTER → 2022-06-05 11:09 | Outpatient (BNVA) | payer MEDICARE, MEDICAID, SELFPAY | PROVIDERS: PCP Registered Nurse; Referring Provider Registered Nurse; Visit Provider Surgery | DX: D17.1 Benign lipomatous neoplasm of skin and subcutaneous tissue of trunk (principal) | CPT/HCPCS: 99202 ==

== ENCOUNTER → 2022-06-08 11:00 | Outpatient (BNVA) | payer MEDICARE, MEDICAID, SELFPAY | PROVIDERS: PCP Registered Nurse; Visit Provider Surgery Vascular Surgery | DX: I83.11 Varicose veins of right lower extremity with inflammation (principal) | CPT/HCPCS: 99202 ==

== ENCOUNTER 2022-06-11 15:42 | Outpatient (REF) | payer MEDICARE, MEDICAID, SELFPAY ==
--- NOTE | ~2022-06-11 | MM_ITS ---
EXAMINATION: MM SCREENING DIGITAL BREAST TOMOSYNTHESIS, BILATERAL CLINICAL INFORMATION: Screening. Asymptomatic. Prior outside mammography from [place] currently unavailable. The lifetime risk of breast cancer based on the Tyrer-Cuzick Model is 3%. COMPARISON: None. TECHNIQUE: Digital breast tomosynthesis is performed in both the craniocaudal and mediolateral oblique views along with computer-aided detection (CAD). Synthesized 2D images are generated from the tomosynthesis. FINDINGS: There are scattered areas of fibroglandular density (ACR BI-RADS breast composition Category b). Right breast has smooth grouped nodularity mid central 9:00 position measuring approximately 1.0 x 1.5 x 2.0 cm, possibly fibrocystic change. Chronicity is unknown. Prior [id number] mammography pending. The remainder of the breasts show no significant mass or architectural abnormality. No abnormal calcifications. The axilla and skin contours are unremarkable. MM/MM tomosynthesis screening BI IMPRESSION: Right: -Smooth grouped nodularity mid central 9:00, possibly fibrocystic change. Left: -No mammographic evidence of malignancy. ASSESSMENT: BI-RADS 0: Incomplete - Need Additional Imaging Evaluation RECOMMENDATION: Radiology department staff will attempt to retrieve outside prior exam(s) to allow for comparison in an addendum report. If prior outside mammography is unable to be retrieved, patient will be recalled for additional targeted ultrasound right breast. This patient's information was entered into a reminder system with a target due date for their next mammogram.
== END 2022-06-11 15:43 | disposition home or self-care (01) ==
LOC: HO.MAMMO 15:42
PROVIDERS: PCP Internal Medicine; Visit Provider Registered Nurse
DX: Z12.31 Encounter for screening mammogram for malignant neoplasm of breast (principal)
CPT/HCPCS: 77063; 77067

== ENCOUNTER 2022-06-16 16:18 | Outpatient (REF) | payer OTHER, MEDICAID, SELFPAY ==
--- NOTE | ~2022-06-16 | CT_ITS ---
EXAMINATION: CT HEAD WITHOUT CONTRAST CLINICAL INFORMATION: History of falls. COMPARISON: Head CT 05/30/2022 TECHNIQUE: Imaging was performed from the skull base to vertex without intravenous administration of contrast. This CT examination was performed using dose optimization techniques as appropriate, variously including the following: *Automated exposure control *Adjustment of mA and/or kV according to patient size (this includes techniques or standardized protocols for targeted exams where dose is matched to indication/reason for exam; i.e. extremities or head) *Use of iterative reconstruction technique Total exam dose length product: 680 mGy-cm FINDINGS: No intra or extra-axial fluid collection, hemorrhage, or mass. No ventriculomegaly. No midline shift or herniation. Basal cisterns are patent. Zhang-white matter differentiation is maintained. No territorial encephalomalacia. No significant volume loss. Patchy periventricular and deep white matter hypoattenuation is consistent with moderate small vessel ischemic changes. No calvarial fracture or soft tissue abnormality. The mastoid air cells and visualized portions of the paranasal sinuses are well aerated. CT/CT head/brain wo IV con IMPRESSION: No acute intracranial pathology.
== END 2022-06-16 16:19 | disposition home or self-care (01) ==
LOC: HO.CT 16:18
PROVIDERS: PCP Internal Medicine; Visit Provider Registered Nurse
DX: R51.9 Headache, unspecified (principal); Z91.81 History of falling; Z79.01 Long term (current) use of anticoagulants
CPT/HCPCS: 70450

== ENCOUNTER 2022-06-28 05:21 | Emergency (ER) | payer OTHER, SELFPAY ==
--- NOTE | ~2022-06-28 | CT_ITS ---
EXAMINATION: CT ABDOMEN AND PELVIS WITHOUT CONTRAST CLINICAL INFORMATION: Abdominal pain with history of colectomy and ileostomy COMPARISON: None TECHNIQUE: Multidetector volumetric imaging was performed from the superior aspect of the liver through the pubic symphysis. Sagittal and coronal reformatted images were obtained on the technologist's workstation. This CT examination was performed using dose optimization techniques as appropriate, variously including the following: *Automated exposure control *Adjustment of mA and/or kV according to patient size (this includes techniques or standardized protocols for targeted exams where dose is matched to indication/reason for exam; i.e. extremities or head) *Use of iterative reconstruction technique DLP: 505 mGy-cm FINDINGS: LUNG BASES: The visualized lung bases are unremarkable. Are normal size. Coronary artery calcification is present. No pleural or pericardial effusion. LIVER, GALLBLADDER, AND BILIARY TREE: The liver is normal in size, shape, and attenuation. No focal hepatic lesion or biliary ductal dilatation is present. Gallbladder is not visualized. PANCREAS: Unremarkable. SPLEEN: Unremarkable. ADRENAL GLANDS: Unremarkable. KIDNEYS AND URETERS: Right kidney: No definite renal mass or calculi identified. There is prominence of the right renal pelvis but without definite hydronephrosis. Visualized portions of the right ureter. Unremarkable. Left kidney: There are either prominent parapelvic cysts versus moderate hydronephrosis related to a UPJ abnormality. This is more likely to represent parapelvic cyst. The left ureter appears unremarkable. No renal calculi are appreciated. No suspicious focal mass is seen. BLADDER: Partially full with questioned wall thickening. GASTROINTESTINAL TRACT: No free air is identified. No free fluid is seen. There are what prominent proximal small bowel loops which are distended with the more distal small bowel being decompressed. The transition in size of the small bowel is seen within the left lower quadrant. Status post colectomy and ileostomy. Ostomy is seen within the right lower quadrant. There is a parastomal hernia present containing loops of small bowel. No inflammatory change or free fluid within the hernia is identified. Varices are present. ABDOMINAL WALL: There is a small fat-containing supraumbilical hernia. Right lower quadrant ostomy with parastomal hernia as described. Prominent venous collaterals are present. Multiple subcutaneous surgical tissue densities are seen about the anterior abdomen consistent with injections. One of these is seen to be contiguous with right rectus muscle and small hematoma cannot be excluded. This measures approximately 2 x 1.3 cm in size. LYMPH NODES: No lymphadenopathy is appreciated. VASCULAR: Inferior vena cava filter seen in place. No abdominal aortic aneurysm. Varices are present with what may be a spontaneous left splenorenal shunt. The umbilical vein is not recannulated. PELVIC VISCERA: No suspicious findings. OSSEOUS STRUCTURES: No suspicious destructive bony lesions identified. Degenerative disc disease L5-S1 present. CT/CT abdomen pelvis wo IV con IMPRESSION: Prominent coronary artery calcifications present. Probable prominent left renal parapelvic cysts and less likely hydronephrosis related to UPJ obstruction. 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 Asymmetrically distended loops of small bowel with distention of jejunum and decompression of the more distal small bowel at site of anastomosis left lower quadrant. Varices without recanalization of the umbilical vein. Fleischner guidelines were followed.
[2022-06-28 05:27] VITALS: BP 136/66; PULSE 78; RESP 16; O2SAT 96; BMI 24.2
[2022-06-28 05:41] VITALS: BP 150/78; PULSE 75; RESP 17; O2SAT 98
--- NOTE | 2022-06-28 05:50 | PC.NURSE ---
Patient endorses abdominal burning that began around 2AM today. Hx colostomy for >20 years. She denies nausea, vomiting, or any change to colostomy output. Abdomen is soft, tender to palpation. Colostomy visualized- intact with no leaking/excoriation to surrounding skin. Patient is alert, oriented x4, ambulatory with steady gait to provide urine sample.
[2022-06-28 05:51] LABS: Basophils Percent Auto 0.2 % (0-2); Eosinophils Absolute Auto 0.1 X10*3/uL (0.0-0.4); Eosinophils Percent Auto 2.1 % (0-4); Hematocrit 37.7 % (37.0-47.0); Hemoglobin 12.2 g/dl (12.0-16.0); Imm Gran Abs Auto 0.02 X10*3/uL (0.00-0.03); Imm Gran Pct Auto 0.4 % (0.0-0.4); Lymphocytes Absolute Auto 0.5 X10*3/uL (1.2-4.9); Lymphocytes Percent Auto 10.3 % (20-40); MANUAL DIFF FLAG NO; Mean Corpuscular HGB Conc 32.4 g/dl (31.0-35.0); Mean Corpuscular Hemoglobin 27.4 pg (27.0-33.0); Mean Corpuscular Volume 84.5 fL (80.0-98.0); Mean Platelet Volume 8.6 fL (9.4-12.3); Monocytes Absolute Auto 0.4 X10*3/uL (0.1-1.2); Neutrophils Absolute Auto 3.8 x10*3/uL (2.0-8.3); Platelet Count 225 X10*3/uL (160-400); Red Blood Count 4.46 X10*6/uL (4.20-5.50); Red Cell Distribution Width 14.8 % (11.0-16.0); White Blood Count 4.8 X10*3/uL (4.8-10.8)
[2022-06-28 06:04] LABS: Appearance Urine Clear; Color Urine Yellow; Glucose Urine UA Negative (Negative); Leukocyte Esterase Urine Negative (Negative); Nitrite Urine Negative (Negative); PH 5.5 (5.0-9.0); Specific Gravity - Urine <= 1.005 (1.005-1.025); UMIC TRIGGER UACC YES; Urine Blood Small (1+) (Negative); Urine Ketones Negative (Negative); Urine Protein Negative (Neg-Trace)
[2022-06-28 06:15] LABS: Bacteria Urine None Seen (None Seen); Hyaline Casts Urine 0-2 /LPF (0-2); RBC Urine 0-2 /HPF (0-2); Squamous Epithelial Cell Urine 0-2 /HPF (0-2); WBC Urine 0-5 /HPF (0-5)
[2022-06-28 06:18] LABS: Alanine Aminotransferase 21 U/L (0-31); Albumin Level 4.2 g/dL (3.5-5.0); Alkaline Phosphatase 68 U/L (39-117); Anion Gap 16 (12-20); Aspartate Amino Transferase 24 U/L (5-31); Bilirubin Total 0.3 mg/dL (0.0-1.0); Blood Urea Nitrogen 24 mg/dL (9-16); Calcium 9.5 mg/dL (8.4-10.2); Carbon Dioxide 22 mmol/L (22-29); Chloride 105 mmol/L (96-108); Creatinine Clr Calc Pharmacy 55.9; Estimated Glomerular Filt Rate > 60; Glucose Random 92 mg/dL (60-115); Lipase 69 U/L (8-78); Potassium 4.6 mmol/L (3.3-5.1); Sodium 138 mmol/L (135-145); Total Protein 7.1 g/dL (6.5-8.0)
--- NOTE | 2022-06-28 07:04 | ED_ITS ---
HPI - Abdominal Pain General Chief Complaint: Abdominal Pain Stated Complaint: Colostomy bag issue Time Seen by Provider: 06/28/22 06:44 Source: patient and EMS Mode of arrival: EMS Limitations: no limitations History of Present Illness HPI narrative: 76-year-old female came in for evaluation of abdominal pain. Pain started since in the morning woke the patient up felt like burning sensation around the ileostomy bag and inside her abdomen, pain was constant and severe 05/25, no radiation, no relieving factor, no aggravating factors, patient did not have this pain in the past, reportedly patient stated that the ileostomy tube is functioning and draining normal color stool and gas also. Now and 4 h ours later patient's pain is better, no fever, no chills, no nausea, no vomiting , normal color stool in the ileostomy bag with no blood. Related Data Home Medications Medication Instructions Recorded Confirmed lamotrigine 25 mg tablet 25 mg PO BID 05/27/22 06/24/22 Previous Rx's Medication Instructions Recorded rivaroxaban 20 mg tablet (Xarelto) 20 mg PO DAILY #30 tabs 06/24/22 Allergies Allergy/AdvReac Type Severity Reaction Status Date / Time Iodine and Iodide Containing Allergy Unknown ANAPHYLAXIS Verified 06/24/22 11:14 Produc [IODINE AND IODIDE CONTAINING PRODUC] Tetanus Vaccines and Toxoid Allergy Unknown UNK Verified 06/24/22 11:14 [TETANUS VACCINES AND TOXOID] IVP dye Allergy Unknown SOB, oral Uncoded 06/24/22 11:14 swelling tetanus Allergy Unknown severe Uncoded 06/24/22 11:14 local swelling Review of Systems Review of Systems All other systems are reviewed and are negative Constitutional: Reports as per HPI and Reports no additional constitutional complaints Eyes: Reports as per HPI and Reports no additional eye complaints Reports system reviewed and no additional complaints, except as documented Cardiovascular: Reports as per HPI and Reports no additional cardiovascular complaints Respiratory: Reports as per HPI and Reports no additional respiratory complaints Gastrointestinal: Reports as per HPI and Reports no additional gastrointestinal complaints Genitourinary: Reports no additional female genitourinary complaints Musculoskeletal: Reports no additional musculoskeletal complaints Skin/Breast: Reports system reviewed and no additional complaints, except as docu Psychiatric: Reports no additional psychiatric complaints Endocrine: Reports no additional endocrine complaints Hematologic/Lymphatic: Reports no additional hematologic/lymphatic complaints Allergic/Immunologic: Reports no additional allergic/immunologic complaints Reports system reviewed and no additional complaints, except as documented and Reports Abnormal speech present [facility] Past Medical History Medical History DVT (deep venous thrombosis) Ileostomy in place Seizure Surgical History H/O ileostomy Family History Family History Other No family history of cancer Social History Social History Household Members: None Housing: Apartment Are you a primary client care representative to a significant other at home: No Do you presently have visiting nurse or other home services: No Alcohol intake: never Patient Tobacco Use Status: Never used Tobacco Advance Directives: No service: No Current occupational status: disabled Current occupation: paralegal legal secretary- retired Current occupational exposures/hazards: No Physical Exam ED Vital Signs: Vital Signs - 24 hr 06/28/22 05:27 06/28/22 05:41 06/28/22 07:35 Temperature 98.2 F Pulse Rate 78 75 66 Respiratory Rate 16 17 13 Blood Pressure 136/66 150/78 H 120/70 Pulse Oximetry 96 98 98 Oxygen Delivery Method Room Air Room Air Room Air 06/28/22 10:43 Temperature 98.1 F Pulse Rate 76 Respiratory Rate 14 Blood Pressure 139/85 Pulse Oximetry 98 Oxygen Delivery Method Room Air BMI result Body Mass Index 24.2 vital signs have been reviewed as appeared to be correct. Blood pressure normal. Heart rate normal. Respiration rate normal. Temperature normal. Oxygen saturation normal. Appearance: Alert. Oriented X3. No acute distress. Head: Normal external exam. Normocephalic. Atraumatic. No Deluca signs noted. No raccoon eyes noted Eyes: PERRLA. EOMI. Conjunctiva and sclera normal. Eyelids normal. ENT: TM's Normal. Pharynx normal. Uvula midline. Moist mucous membranes. No tr ismus noted. No drooling noted. No muffled voice noted. Neck: Normal inspection. Neck supple. FROM. No adenopathy. Thyroid Normal. No meningeal signs. No neck mass noted. CVS: Normal heart rate and rhythm. Heart sound normal. No murmurs noted. Pulses normal throughout. Respiratory: No respiratory distress. Painless inspiration. Breath sounds normal. No wheezes/rales/rhonchi noted. Chest nontender. No accessory muscle usage noted or decreased air movement noted. Abdomen: Soft and nontender. Ileostomy bag in the right side abdomen appear intact with normal color stool in the bag. Bowel sounds normal in all 4 quadrants. No distention noted. No organomegaly noted. No visible injury noted . Back: No CVA tenderness. Full range of motion noted. Skin: Skin warm and dry. Normal skin color. Normal skin turgor. No rashes/lesions/lacerations noted. Extremities: No lower extremity edema. Extremities exhibit normal range of motion. Extremities nontender. Neuro: Oriented X 3. Cranial nerve exam: II-XII are grossly intact No motor deficit. No sensory deficit. Reflexes normal. Course Course Course Narrative: 76-year-old female came in for evaluation of abdominal pain, patient has unremarkable labs and unremarkable CT with nonspecific finding of the abdomen and pelvis, pain has resolved patient was asking to eat no abdominal pain after eating and drinking in the ED.. Will discharge to follow-up with PCP. MDM - Abdominal Pain Medical Records Attestation: I reviewed the patient's medical records. Lab Data Attestation: I reviewed the patient's lab results. Result diagrams: 06/28/22 05:39 06/28/22 05:39 Labs: Lab Results 06/28/22 06/28/22 06/28/22 Range/Units 05:39 05:39 05:58 WBC 4.8 (4.8-10.8) X10*3/uL RBC 4.46 (4.20-5.50) X10*6/uL Hgb 12.2 (12.0-16.0) g/dl Hct 37.7 (37.0-47.0) % MCV 84.5 (80.0-98.0) fL MCH 27.4 (27.0-33.0) pg MCHC 32.4 (31.0-35.0) g/dl RDW 14.8 (11.0-16.0) % Plt Count 225 (160-400) X10*3/uL MPV 8.6 L (9.4-12.3) fL Immature Gran % (Auto) 0.4 (0.0-0.4) % Neut % (Auto) 79.0 H (45-73) % Lymph % (Auto) 10.3 L (20-40) % [place] % (Auto) 8.0 (2-11) % Eos % (Auto) 2.1 (0-4) % Baso % (Auto) 0.2 (0-2) % Lymph # (Auto) 0.5 L (1.2-4.9) X10*3/uL [place] # (Auto) 0.4 (0.1-1.2) X10*3/uL Eos # (Auto) 0.1 (0.0-0.4) X10*3/uL Baso # (Auto) 0.0 (0.0-0.2) X10*3/uL Abs Immat Gran (auto) 0.02 (0.00-0.03) X10*3/uL Absolute Neuts (auto) 3.8 (2.0-8.3) x10*3/uL Absolute Nucleated RBC 0.000 (0.0-0.012) X10*3/uL Nucleated RBC % (auto) 0.0 (0.0-0.2) /100WBC Sodium 138 (135-145) mmol/L Potassium 4.6 (3.3-5.1) mmol/L Chloride 105 (96-108) mmol/L Carbon Dioxide 22 (22-29) mmol/L Anion Gap 16 (12-20) BUN 24 H (9-16) mg/dL Creatinine 0.80 (0.5-1.4) mg/dL Estim Creat Clear Calc 55.9 Estimated GFR > 60 Random Glucose 92 (60-115) mg/dL Calcium 9.5 (8.4-10.2) mg/dL Total Bilirubin 0.3 (0.0-1.0) mg/dL AST 24 (5-31) U/L ALT 21 (0-31) U/L Alkaline Phosphatase 68 (39-117) U/L Total Protein 7.1 (6.5-8.0) g/dL Albumin 4.2 (3.5-5.0) g/dL Lipase 69 (8-78) U/L Urine Color Yellow Urine Appearance Clear Urine pH 5.5 (5.0-9.0) Ur Specific [place] <= 1.005 (1.005-1.025) Urine Protein Negative (Neg-Trace) mg/dL Urine Glucose (UA) Negative (Negative) mg/dL Urine Ketones Negative (Negative) mg/dL Urine Blood Small (1+) H (Negative) Urine Nitrite Negative (Negative) Ur Leukocyte Esterase Negative (Negative) Urine RBC 0-2 (0-2) /HPF Urine WBC 0-5 (0-5) /HPF Ur Squamous Epith Cells 0-2 (0-2) /HPF Urine Bacteria None Seen (None Seen) Hyaline Casts 0-2 (0-2) /LPF Imaging Data CT scan - abdomen: Attestation: I personally reviewed and interpreted this imaging study as follows: Radiologist's impression: Prominent coronary artery calcifications present. ? Probable prominent left renal parapelvic cysts and less likely hydronephrosis related to UPJ obstruction. ? 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 ? Asymmetrically distended loops of small bowel with distention of jejunum and decompression of the more distal small bowel at site of anastomosis left lower quadrant. ? Varices without recanalization of the umbilical vein.? Discharge Plan Discharge Clinical Impression: Abdominal pain Patient Disposition: Home, Self-Care Instructions: Abdominal Pain (ED) Prescriptions: No Action Xarelto 20 mg Tablet 20 mg PO DAILY Qty: 30 3RF Rx Instructions: must administer with evening meal lamotrigine 25 mg tablet 25 mg PO BID Referrals: [facility] [Primary Care Provider] -
--- NOTE | 2022-06-28 07:15 | PC.NURSE ---
Pt continues to complain of burning sensation in abd. Awaiting CT scan.
[2022-06-28 07:35] VITALS: BP 120/70; PULSE 66; RESP 13; TEMP 36.8; O2SAT 98
[2022-06-28 10:43] VITALS: BP 139/85; PULSE 76; RESP 14; TEMP 36.7; O2SAT 98
== END 2022-06-28 12:15 | disposition home or self-care (01) ==
PROVIDERS: Emergency Provider Emergency Medicine
DX: R10.9 Unspecified abdominal pain (principal); Z79.899 Other long term (current) drug therapy
CPT/HCPCS: 36415; 74176; 80053; 81001; 83690; 85025; 99284

== ENCOUNTER 2022-07-06 02:22 | Emergency (ER) | payer OTHER, SELFPAY ==
[2022-07-06] VITALS (8 sets, daily range): BP systolic 100–139; BP diastolic 54–74; PULSE 60–76; RESP 12–20; TEMP 36.5–36.6; O2SAT 95–99; BMI 26.7
--- NOTE | ~2022-07-06 | XR_ITS ---
EXAMINATION: XR ABDOMEN KUB CLINICAL INDICATION: Abdominal discomfort. COMPARISON: CT dated 06/28/2022 TECHNIQUE: AP view of the abdomen. FINDINGS: Nondilated bowel gas pattern. No gross evidence of pneumoperitoneum. Minimal stool material identified. Numerous surgical clips are present throughout the abdomen. IVC filter is in place. Ostomy overlies the right hemipelvis. Degenerative spondylosis in the lower lumbar spine. No acute osseous findings. 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 XR/XR KUB IMPRESSION: Nondilated bowel gas pattern. No acute findings.
--- NOTE | 2022-07-06 02:33 | ECG_ITS ---
Test Reason : DIZZINESS Blood Pressure : / mmHG Vent. Rate : 075 BPM Atrial Rate : 075 BPM P-R Int : 170 ms QRS Dur : 076 ms QT Int : 364 ms P-R-T Axes : 041 018 037 degrees QTc Int : 406 ms Normal sinus rhythm Normal ECG When compared with ECG of 30-MAY-2022 14:12, No significant change was found Referred By: Benita Stark Electronically Signed By:MANUELA ANDREW MD
[2022-07-06 03:05] LABS: Basophils Percent Auto 0.5 % (0-2); Eosinophils Absolute Auto 0.2 X10*3/uL (0.0-0.4); Eosinophils Percent Auto 5.2 % (0-4); Hematocrit 36.9 % (37.0-47.0); Hemoglobin 11.8 g/dl (12.0-16.0); Lymphocytes Absolute Auto 0.7 X10*3/uL (1.2-4.9); MANUAL DIFF FLAG NO; Mean Corpuscular Hemoglobin 27.4 pg (27.0-33.0); Mean Corpuscular Volume 85.8 fL (80.0-98.0); Mean Platelet Volume 8.6 fL (9.4-12.3); Monocytes Absolute Auto 0.4 X10*3/uL (0.1-1.2); Monocytes Percent Auto 10.6 % (2-11); Neutrophils Absolute Auto 2.7 x10*3/uL (2.0-8.3); Neutrophils Percent Auto 65.7 % (45-73); Platelet Count 225 X10*3/uL (160-400); Red Cell Distribution Width 14.9 % (11.0-16.0); White Blood Count 4.1 X10*3/uL (4.8-10.8)
--- NOTE | 2022-07-06 03:08 | ED.GENADULT ---
HPI - General Adult General Chief complaint: Dizziness Stated complaint: abdominal pain Time Seen by Provider: 07/06/22 02:32 Source: patient Mode of arrival: EMS History of Present Illness HPI narrative: 76-year-old female arrives via EMS with similar complaints to her prior visit regarding burning sensation to her stoma site of her ostomy but denies any nausea, vomiting, decrease in appetite and denies any concerning bleeding into her ostomy. Patient also describes feeling headache and dizziness and states that she has noticed that there are ?some particles drifting down? and patient states that this affects her ostomy and she has spoken with the front office multiple times. Patient also expresses concerns regarding the tenant above her walking on the floor and states ?when I am in the bathroom I hear the footsteps above me, when I am in the living room I hear the foot steps above me . When I ask the patient if she feels that someone is following her she states that she ?does not know but she has spoken to the front office?. She denies having any gas or propane heaters in states that it is all electric. Otherwise she denies fever, chills, shortness of breath or chest pain/palpitations. Related Data Home Medications Medication Instructions Recorded Confirmed lamotrigine 25 mg tablet 25 mg PO BID 05/27/22 06/24/22 Previous Rx's Medication Instructions Recorded rivaroxaban 20 mg tablet (Xarelto) 20 mg PO DAILY #30 tabs 06/24/22 Allergies Allergy/AdvReac Type Severity Reaction Status Date / Time Iodine and Iodide Containing Allergy Unknown ANAPHYLAXIS Verified 06/24/22 11:14 Produc [IODINE AND IODIDE CONTAINING PRODUC] Tetanus Vaccines and Toxoid Allergy Unknown UNK Verified 06/24/22 11:14 [TETANUS VACCINES AND TOXOID] IVP dye Allergy Unknown SOB, oral Uncoded 06/24/22 11:14 swelling tetanus Allergy Unknown severe Uncoded 06/24/22 11:14 local swelling Review of Systems Review of Systems: Pertinent positives and negatives as stated in HPI 10 point review of systems is otherwise negative. PMFSH Past Medical History Source: nursing notes reviewed Medical History DVT (deep venous thrombosis) Ileostomy in place Seizure Surgical History H/O ileostomy Family History Family History Other No family history of cancer Social History Social History Household Members: None Housing: Apartment Are you a primary veterinarian laboratory animal care to a significant other at home: No Do you presently have visiting nurse or other home services: No Alcohol intake: never Patient Tobacco Use Status: Never used Tobacco Advance Directives: No Advance Directives Information Provided: Yes service: No Current occupational status: disabled Current occupation: school secretary- retired Current occupational exposures/hazards: No Physical Exam ED Vital Signs: Vital Signs - 24 hr 07/06/22 02:48 07/06/22 03:53 07/06/22 05:17 Temperature 97.9 F 97.8 F 97.9 F Pulse Rate 75 76 63 Respiratory Rate 20 15 12 Blood Pressure 105/60 121/61 100/54 L Pulse Oximetry 98 96 95 Oxygen Delivery Method Room Air Room Air Room Air BMI result Body Mass Index 26.7 VITAL SIGNS: Reviewed. GENERAL: Well developed, well nourished, in no acute distress. HEAD: Normocephalic/atraumatic EYES: PERRLA, EOMI EARS: Ext canals without abnormality OROPHARYNX: no oral lesions noted, posterior pharynx clear LUNGS: Normal breath sounds. No adventitious sounds or accessory muscle use. SpO2<98> CARDIOVASCULAR: Regular rate and rhythm without noted murmurs, no JVD but bilateral lower extremity 2+ pitting edema to the knees ABDOMEN: Soft, non-tender, non-distended with bowel sounds, ostomy is patent of brown stool no noted bleeding there is gas in the bag. MUSCULOSKELETAL: No tenderness, deformities, or effusions noted on gross inspection. EXTREMITIES: No cyanosis, clubbing or edema. SKIN: Inspection of the skin reveals no rashes NEUROLOGIC: Alert and oriented x 4. Strength and sensation to light touch were grossly intact x 4. Course Course Course Narrative: 76-year-old female with history and clinical presentation consistent with possible anxiety regarding her current living conditions which she states have only been for 2 months and she is expressing significant concerns regarding her living conditions. She appears to not feel safe and denies wanting to going to a fci. She is otherwise hemodynamically stable and appears well with a fully functioning ostomy and a soft abdomen. Will obtain basic lab work as well as a KUB. Review of all investigations otherwise negative for acute findings. Patient will be placed for case management evaluation to further ascertain some of the patient struggles with her current living conditions. She is otherwise medically cleared. Reevaluation(s) Reevaluation #1: Patient placed in physician observation because the patient needed more time for evaluation by case management. At the time observation was started the patient's vital signs were stable, patient is alert and oriented, neuro: Nonfocal, CV RRR, lungs clear Time: 06:51 Medical Decision Making Lab Data Result diagrams: 07/06/22 03:00 07/06/22 03:00 Labs: Lab Results 07/06/22 07/06/22 07/06/22 Range/Units 03:00 03:00 03:57 WBC 4.1 L (4.8-10.8) X10*3/uL RBC 4.30 (4.20-5.50) X10*6/uL Hgb 11.8 L (12.0-16.0) g/dl Hct 36.9 L (37.0-47.0) % MCV 85.8 (80.0-98.0) fL MCH 27.4 (27.0-33.0) pg MCHC 32.0 (31.0-35.0) g/dl RDW 14.9 (11.0-16.0) % Plt Count 225 (160-400) X10*3/uL MPV 8.6 L (9.4-12.3) fL Immature Gran % (Auto) 0.0 (0.0-0.4) % Neut % (Auto) 65.7 (45-73) % Lymph % (Auto) 18.0 L (20-40) % [place] % (Auto) 10.6 (2-11) % Eos % (Auto) 5.2 H (0-4) % Baso % (Auto) 0.5 (0-2) % Lymph # (Auto) 0.7 L (1.2-4.9) X10*3/uL [place] # (Auto) 0.4 (0.1-1.2) X10*3/uL Eos # (Auto) 0.2 (0.0-0.4) X10*3/uL Baso # (Auto) 0.0 (0.0-0.2) X10*3/uL Abs Immat Gran (auto) 0.00 (0.00-0.03) X10*3/uL Absolute Neuts (auto) 2.7 (2.0-8.3) x10*3/uL Absolute Nucleated RBC 0.000 (0.0-0.012) X10*3/uL Nucleated RBC % (auto) 0.0 (0.0-0.2) /100WBC Sodium 140 (135-145) mmol/L Potassium 4.4 (3.3-5.1) mmol/L Chloride 105 (96-108) mmol/L Carbon Dioxide 27 (22-29) mmol/L Anion Gap 12 (12-20) BUN 27 H (9-16) mg/dL Creatinine 0.81 (0.5-1.4) mg/dL Estim Creat Clear Calc 48.6 Estimated GFR > 60 Random Glucose 98 (60-115) mg/dL Calcium 9.6 (8.4-10.2) mg/dL Total Bilirubin 0.4 (0.0-1.0) mg/dL AST 20 (5-31) U/L ALT 19 (0-31) U/L Alkaline Phosphatase 70 (39-117) U/L Total Protein 6.7 (6.5-8.0) g/dL Albumin 4.0 (3.5-5.0) g/dL Urine Color Yellow Urine Appearance Clear Urine pH 5.5 (5.0-9.0) Ur Specific [place] 1.010 (1.005-1.025) Urine Protein Negative (Neg-Trace) mg/dL Urine Glucose (UA) Negative (Negative) mg/dL Urine Ketones Negative (Negative) mg/dL Urine Blood Moderate (2+) H (Negative) Urine Nitrite Negative (Negative) Ur Leukocyte Esterase Trace H (Negative) Urine RBC 0-2 (0-2) /HPF Urine WBC 0-5 (0-5) /HPF Ur Squamous Epith Cells 0-2 (0-2) /HPF Urine Bacteria None Seen (None Seen) Hyaline Casts 0-2 (0-2) /LPF ECG Data Attestation: I personally reviewed and interpreted this ECG as follows: Prior ECG tracings: available for review Interpretation: Normal sinus rhythm, HR -75, no STEMI, IL/QRS/QTC are within normal limits. Discharge Plan Discharge Clinical Impression: Abdominal discomfort, Unsatisfactory living conditions Patient Disposition: Still a Patient Prescriptions: No Action Xarelto 20 mg Tablet 20 mg PO DAILY Qty: 30 3RF Rx Instructions: must administer with evening meal lamotrigine 25 mg tablet 25 mg PO BID
[2022-07-06 03:34] LABS: Alanine Aminotransferase 19 U/L (0-31); Alkaline Phosphatase 70 U/L (39-117); Anion Gap 12 (12-20); Aspartate Amino Transferase 20 U/L (5-31); Bilirubin Total 0.4 mg/dL (0.0-1.0); Blood Urea Nitrogen 27 mg/dL (9-16); Calcium 9.6 mg/dL (8.4-10.2); Carbon Dioxide 27 mmol/L (22-29); Chloride 105 mmol/L (96-108); Creatinine Clr Calc Pharmacy 48.6; Estimated Glomerular Filt Rate > 60; Glucose Random 98 mg/dL (60-115); Potassium 4.4 mmol/L (3.3-5.1); Sodium 140 mmol/L (135-145); Total Protein 6.7 g/dL (6.5-8.0)
[2022-07-06 04:04] LABS: Appearance Urine Clear; Color Urine Yellow; Glucose Urine UA Negative (Negative); Leukocyte Esterase Urine Trace (Negative); Nitrite Urine Negative (Negative); PH 5.5 (5.0-9.0); UMIC TRIGGER UACC YES; Urine Blood Moderate (2+) (Negative); Urine Ketones Negative (Negative); Urine Protein Negative (Neg-Trace)
[2022-07-06 04:13] LABS: Bacteria Urine None Seen (None Seen); Hyaline Casts Urine 0-2 /LPF (0-2); RBC Urine 0-2 /HPF (0-2); Squamous Epithelial Cell Urine 0-2 /HPF (0-2); WBC Urine 0-5 /HPF (0-5)
--- NOTE | 2022-07-06 08:40 | PC.NURSE ---
PT UP AND AMBULATING WITH PHYSICAL THERAPY, SHE REPORTS A HEADACHE, MILD DIZZINESS.
[2022-07-06 09:35] LABS: COVID-19 Test Negative (Negative); IDNOW Serial# 16C4AD1C
[2022-07-06] MEDS: Acetaminophen 325 MG TABLET 975 MG PO (09:44)
--- NOTE | 2022-07-06 11:25 | PHA.MEDREC ---
Pharmacy Consult ? Medication Reconciliation Pharmacy has completed the medication reconciliation. Patient confirmed all medications. Jennifer Montana, ShermanD
--- NOTE | 2022-07-06 11:41 | MHC.CM.ED ---
Received case management consult this morning. Patient came to the ER due to abd pain and dizziness. Work up is essentially negative. Physical therapy eval completed. No services indicated to be needed. Patient is well know to T/W from Officer Bradley, Elder Affairs Officer of [employer]. Patient lives alone and not active with any services. PCP verirfied. Patient denies having a HCP. Information provided. Patient not interested in completing one at this time. Patient received 3 Covid vaccines. Patient has only lived in her apartment for a couple of months. Since moving in, she has complained of the apartment making her sick . Patient has tried to get the housing authority to change her apartment. However, there is not a documented medical need for the apartment change and they have a wait list. Patient aware she will go home without service and is agreeable. Chair van booked. Patient, Olvin BROWNE and Tatiana BOATENG aware. Continue to monitor for d/c needs.
== END 2022-07-06 13:09 | disposition home or self-care (01) ==
PROVIDERS: Nurse Practitioner Family; Emergency Provider Student in an Organized Health Care Education/Training Program; PCP Internal Medicine
DX: R10.9 Unspecified abdominal pain (principal); Z72.89 Other problems related to lifestyle; Z59.1 Inadequate housing; Z86.718 Personal history of other venous thrombosis and embolism; Z79.01 Long term (current) use of anticoagulants; Z20.822 Contact with and (suspected) exposure to COVID-19
CPT/HCPCS: 36415; 74018; 80053; 81001; 85025; 87635; 93005; 97161; 99285

== ENCOUNTER 2022-07-21 03:48 | Emergency (ER) | payer OTHER, SELFPAY ==
--- NOTE | 2022-07-21 | ECG_ITS ---
Test Reason : DIZZINESS Blood Pressure : / mmHG Vent. Rate : 076 BPM Atrial Rate : 076 BPM P-R Int : 164 ms QRS Dur : 084 ms QT Int : 372 ms P-R-T Axes : 041 014 023 degrees QTc Int : 418 ms Normal sinus rhythm Normal ECG When compared with ECG of 06-JUL-2022 03:50, No significant change was found Referred By: Generic ED Physician Electronically Signed By:GISELLE LOPEZ MD
[2022-07-21 04:17] VITALS: BP 131/74; BP 144/81; PULSE 80; RESP 18; TEMP 36.7; O2SAT 98; BMI 26.7
[2022-07-21 04:20] LABS: Basophils Percent Auto 0.8 % (0-2); Eosinophils Absolute Auto 0.2 X10*3/uL (0.0-0.4); Eosinophils Percent Auto 5.9 % (0-4); Hematocrit 39.6 % (37.0-47.0); Imm Gran Abs Auto 0.01 X10*3/uL (0.00-0.03); Imm Gran Pct Auto 0.3 % (0.0-0.4); Lymphocytes Absolute Auto 0.6 X10*3/uL (1.2-4.9); Lymphocytes Percent Auto 17.3 % (20-40); MANUAL DIFF FLAG NO; Mean Corpuscular HGB Conc 32.8 g/dl (31.0-35.0); Mean Corpuscular Hemoglobin 27.6 pg (27.0-33.0); Mean Corpuscular Volume 84.1 fL (80.0-98.0); Mean Platelet Volume 8.6 fL (9.4-12.3); Monocytes Absolute Auto 0.3 X10*3/uL (0.1-1.2); Monocytes Percent Auto 9.1 % (2-11); Neutrophils Absolute Auto 2.4 x10*3/uL (2.0-8.3); Neutrophils Percent Auto 66.6 % (45-73); Platelet Count 238 X10*3/uL (160-400); Red Blood Count 4.71 X10*6/uL (4.20-5.50); Red Cell Distribution Width 14.6 % (11.0-16.0); White Blood Count 3.5 X10*3/uL (4.8-10.8)
[2022-07-21 04:41] LABS: Alanine Aminotransferase 20 U/L (0-31); Albumin Level 4.2 g/dL (3.5-5.0); Alkaline Phosphatase 70 U/L (39-117); Anion Gap 13 (12-20); Aspartate Amino Transferase 25 U/L (5-31); Bilirubin Direct < 0.2 mg/dL (0.0-0.5); Bilirubin Total 0.4 mg/dL (0.0-1.0); Blood Urea Nitrogen 26 mg/dL (9-16); Calcium 9.7 mg/dL (8.4-10.2); Carbon Dioxide 24 mmol/L (22-29); Chloride 107 mmol/L (96-108); Creatinine Clr Calc Pharmacy 49.2; Estimated Glomerular Filt Rate > 60; Glucose Random 83 mg/dL (60-115); Lipase 67 U/L (8-78); Potassium 4.3 mmol/L (3.3-5.1); Sodium 140 mmol/L (135-145); Total Protein 7.2 g/dL (6.5-8.0)
[2022-07-21 04:48] LABS: Troponin-I High Sensitivity < 3.5 ng/L (<3.5-17.0)
[2022-07-21 06:26] VITALS: BP 133/74; PULSE 75; RESP 16; TEMP 36.5; O2SAT 96
--- NOTE | 2022-07-21 07:57 | ED_ITS ---
HPI - General Adult General Chief complaint: Dizziness Stated complaint: dizziness Time Seen by Provider: 07/21/22 07:24 Source: patient and EMS History of Present Illness HPI narrative: 76-year-old female who called 911 this morning for ?dizziness, presents to the emergency department today complaining of multiple symptoms. The patient initially states that she woke up this morning and heard voices around her house, and then felt some type of feeling going up into her head. At that point, she called 911. Currently, she believes there is a ?poison? in her body because she is having swelling of her hands bilaterally. The patient states she went to the bathroom and now believes she is having bleeding her stomach. She did not see blood in the toilet, and her stool is not black or tarry. There is no abdominal pain, no fever, no chills. Onset (ago): hour(s) Related Data Home Medications Medication Instructions Recorded Confirmed lamotrigine 25 mg tablet 25 mg PO BID 05/27/22 07/06/22 Previous Rx's Medication Instructions Recorded rivaroxaban 20 mg tablet (Xarelto) 20 mg PO DAILY #30 tabs 06/24/22 Allergies Allergy/AdvReac Type Severity Reaction Status Date / Time Iodine and Iodide Containing Allergy Unknown ANAPHYLAXIS Verified 06/24/22 11:14 Produc [IODINE AND IODIDE CONTAINING PRODUC] Tetanus Vaccines and Toxoid Allergy Unknown UNK Verified 06/24/22 11:14 [TETANUS VACCINES AND TOXOID] IVP dye Allergy Unknown SOB, oral Uncoded 06/24/22 11:14 swelling tetanus Allergy Unknown severe Uncoded 06/24/22 11:14 local swelling Review of Systems Review of Systems: Constitutional: Denies chills and Denies fever(s) Eyes: Denies blurry vision and Denies diplopia ENT: Admits to dizziness, Denies nasal congestion and Denies sore throat Cardiovascular: Denies chest pain, Denies syncope and Denies rapid heart rate Respiratory: Denies cough and Denies wheezing Gastrointestinal: Denies diarrhea, Denies nausea and Denies vomiting Genitourinary: No dysuria, frequency or urgency. Musculoskeletal: Denies back pain and Denies myalgias Neuro: Denies syncope, numbness or tingling Allergic/Immunologic: Denies wheezing, rash PMFSH Past Medical History Medical History DVT (deep venous thrombosis) Ileostomy in place Seizure Surgical History H/O ileostomy Family History Family History Other No family history of cancer Social History Social History Household Members: None Housing: Apartment Are you a primary home day care provider to a significant other at home: No Do you presently have visiting nurse or other home services: No Alcohol intake: never Patient Tobacco Use Status: Never used Tobacco Smoked in Last 30 Days: No Use of substances other than those prescribed or required for medical reasons: No Advance Directives: No service: No Current occupational status: disabled Current occupation: corporate secretary- retired Current occupational exposures/hazards: No Physical Exam ED Vital Signs: Vital Signs - 24 hr 07/21/22 04:17 07/21/22 06:26 07/21/22 11:00 Temperature 98.1 F 97.7 F 97.6 F Pulse Rate 80 75 75 Respiratory Rate 18 16 12 Blood Pressure 144/81 H 133/74 131/66 Pulse Oximetry 98 96 98 Oxygen Delivery Method Room Air Room Air Room Air BMI result Body Mass Index 26.7 Medical Decision Making Medical Decision Making MDM Narrative: 76-year-old female with a past medical history of DVT who presented to the emergency room with multiple complaints. Laboratory studies were performed, including CBC and chemistry both of which were normal. The patient was to be seen by the mental health clinician, however she eloped prior to that evaluation. Discharge Plan Discharge Clinical Impression: Acute paranoia Patient Disposition: Elopement Prescriptions: No Action Xarelto 20 mg Tablet 20 mg PO DAILY Qty: 30 3RF Rx Instructions: must administer with evening meal lamotrigine 25 mg tablet 25 mg PO BID
--- NOTE | 2022-07-21 09:12 | PC.NURSE ---
PT IS A/O X 3 NO SOB/GITA NOTED SPEAKS IN FULL SENTENCES. LUNGS - CTA. HEART SOUNDS REGULAR. ABD SOFT AND NON-TENDER BS + 4 QUADS. R LOWER LEG SLIGHTLY SWOLLEN THAN THE LEFT LOWER LEG. PT AWARE OF PLAN OF CARE.
[2022-07-21 11:00] VITALS: BP 131/66; PULSE 75; RESP 12; TEMP 36.4; O2SAT 98
--- NOTE | 2022-07-21 12:48 | PC.NURSE ---
i went into attempt to retrieve labs from patient i tried once and failed i tried a second time and patient immediately told me to take out the needle because it hurt too much. i asked another tech to attemp the labs and patient outright refused physician aware
--- NOTE | 2022-07-21 13:45 | PC.NURSE ---
pt is not at bedside. hosp garment and cna hha leads are on the bed. aware.
--- NOTE | 2022-07-21 14:34 | PC.NURSE ---
this rn called pt at [phone] (with interpreter translator interpreting via phone). pt states that she left/eloped with her sister and her iv was d/c'd. pt states that she is okay and if she needs to return to the er for any reason she will do so. pt was encouraged to follow up with her pcp.
== END 2022-07-21 14:38 | disposition left against medical advice (07) ==
PROVIDERS: Emergency Provider Emergency Medicine
DX: F22 Delusional disorders (principal); R42 Dizziness and giddiness; Z79.899 Other long term (current) drug therapy
CPT/HCPCS: 36415; 80053; 82248; 83690; 84484; 85025; 85730; 93005; 99284; 99285

== ENCOUNTER 2022-08-03 13:15 | Emergency (ER) | payer OTHER, SELFPAY ==
--- NOTE | ~2022-08-03 | US_ITS ---
EXAMINATION: US VENOUS RIGHT LOWER EXTREMITY (REFLUX EXAM) BILATERAL LOWER EXTREMITY DVT STUDY CLINICAL INDICATION: Leg pain and varicose veins. COMPARISON: Lower extremity venous duplex 05/21/2022 TECHNIQUE: Color flow triplex imaging and compression Doppler was performed to evaluate the right deep and superficial systems . To evaluate the superficial system, the examination was performed in the upright position. Color-flow Doppler ultrasound and compression ultrasound were utilized. In addition, maneuvers were utilized to demonstrate reflux. Should be noted that the patient was brought back for additional imaging at about 7:30 PM even though the original images were obtained in the morning FINDINGS: 1. DEEP VENOUS ULTRASOUND OF THE RIGHT LOWER EXTREMITY: Respiratory variation, normal compression and augmented flow are noted in the right common femoral vein, femoral vein and the right popliteal vein and there is no evidence of deep venous thrombosis at these locations. There is a 1.7 seconds of reflux in the mid femoral vein but the common femoral vein and popliteal vein do not reflux. There is no evidence of a Leblanc's cyst. 2. SUPERFICIAL ULTRASOUND WITH DOPPLER OF RIGHT LOWER EXTREMITY: The right great saphenous vein at the saphenofemoral junction measures 7 mm, at the proximal thigh 4 mm, at the mid thigh 3 mm, above the knee 3 mm, at the knee 3 mm, [id number] 3 mm, midcalf 3 mm and at the ankle measures 2 mm. About 1 seconds of reflux is present at the saphenofemoral junction. Duplicated Right Great Saphenous Vein: There is a lateral accessory saphenous vein that measures 4 mm and does not reflux The right small saphenous vein measures 3 mm and and demonstrates 0.9 seconds of reflux Accessory Vein of [place]: None Incompetent Perforators: Perforators are present but none reflux Varices Present: Varicosities measuring up to 3 mm in size are present that demonstrate 1.9 seconds of reflux 3. DEEP VENOUS ULTRASOUND OF THE LEFT LOWER EXTREMITY: The left popliteal vein is not fully compressible but there is color Doppler flow seen. Similar findings were present at the time of the patient's prior study in 05/21/2022 and these findings most likely represent chronic changes. Otherwise, the left lower extremity appears normal. Respiratory variation, normal compression and augmented flow are noted in the left common femoral vein and femoral vein and there is no evidence of deep venous thrombosis at these locations. There is no evidence of a Leblanc's cyst. US/US venous duplex LE BI IMPRESSION: 1. No evidence of thrombus in the common femoral veins or popliteal veins bilaterally. There is a 1.7 seconds of reflux in the right mid femoral vein. 2. 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 3. There is reflux in the right small saphenous vein. 4. The left popliteal vein is not fully compressible but there is color Doppler flow seen. Similar findings were present on the patient's prior study in 05/21/2022 and these findings most likely represent chronic changes. This critical result was discussed with Alvaro DALTON at 8:00 PM on the day of the exam and it was ascertained that the content and urgency of the report was understood at the time of direct communication.
--- NOTE | 2022-08-03 13:19 | ED_ITS ---
HPI - Extremity Problem General Chief complaint: Extremity Problem <Shana Lutz CNP - Last Filed: 08/03/22 13:31> Stated complaint: clot in leg <Shana Lutz CNP - Last Filed: 08/03/22 13:31> Time Seen by Provider: 08/03/22 17:20 <Shana Lutz CNP - Last Filed: 08/03/22 13:31> History of Present Illness HPI Narrative: Patient sent from Dr. lacy office for new DVT seen on ultrasound this morning, patient is compliant with anticoagulants and actually has a filter in place as well She has no shortness of breath no chest pain no fevers <KRYSTLE Garza - Last Filed: 08/26/22 09:48> Related Data Home medications: Home Medications Medication Instructions Recorded Confirmed lamotrigine 25 mg tablet 25 mg PO BID 05/27/22 07/06/22 Previous Rx's Medication Instructions Recorded rivaroxaban 20 mg tablet (Xarelto) 20 mg PO DAILY #30 tabs 06/24/22 <Shana Lutz CNP - Last Filed: 08/03/22 13:31> Allergies/Adverse reactions: Allergies Allergy/AdvReac Type Severity Reaction Status Date / Time Iodine and Iodide Containing Allergy Unknown ANAPHYLAXIS Verified 06/24/22 11:14 Produc [IODINE AND IODIDE CONTAINING PRODUC] Tetanus Vaccines and Toxoid Allergy Unknown UNK Verified 06/24/22 11:14 [TETANUS VACCINES AND TOXOID] IVP dye Allergy Unknown SOB, oral Uncoded 06/24/22 11:14 swelling tetanus Allergy Unknown severe Uncoded 06/24/22 11:14 local swelling <Shana Lutz CNP - Last Filed: 08/03/22 13:31> Review of Systems Review of Systems: Negative for fever chills dizziness weakness no fainting no feeling faint no chest pain no shortness of breath no palpitations no decreased exercise tolerance no abdominal pain no new rash <KRYSTLE Garza - Last Filed: 08/26/22 09:48> Yes all other systems are reviewed and are negative <KRYSTLE Garza - Last Filed: 08/26/22 09:48> PMFSH Past Medical History Source: nursing notes reviewed <KRYSTLE Garza - Last Filed: 08/26/22 09:48> Medical History: Medical History DVT (deep venous thrombosis) Ileostomy in place Seizure <Shana Lutz CNP - Last Filed: 08/03/22 13:31> Surgical History: Surgical History H/O ileostomy <Shana Lutz CNP - Last Filed: 08/03/22 13:31> Family History Family History: Family History Other No family history of cancer <Shana Lutz CNP - Last Filed: 08/03/22 13:31> Social History Social History: Social History Household Members: None Housing: Apartment Are you a primary rn progressive care unit to a significant other at home: No Do you presently have visiting nurse or other home services: No Alcohol intake: never Patient Tobacco Use Status: Never used Tobacco Advance Directives: No Advance Directives Information Provided: No service: No Current occupational status: disabled 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 Current occupational exposures/hazards: No <Shana Lutz CNP - Last Filed: 08/03/22 13:31> Physical Exam Vital Signs: Vital Signs: Last Vital Signs Temp 96.2 F L 08/03/22 13:50 Pulse 71 08/03/22 13:50 Resp 17 08/03/22 13:50 BP 145/88 H 08/03/22 13:50 Pulse Ox 99 08/03/22 13:50 O2 Del Method 08/03/22 13:50 BMI result Body Mass Index 25.0 <Shana Lutz CNP - Last Filed: 08/03/22 13:31> Vital Signs: Last Vital Signs Temp 96.2 F L 08/03/22 13:50 Pulse 71 08/03/22 13:50 Resp 17 08/03/22 13:50 BP 145/88 H 08/03/22 13:50 Pulse Ox 99 08/03/22 13:50 O2 Del Method 08/03/22 13:50 BMI result Body Mass Index 25.0 <KRYSTLE Garza - Last Filed: 08/26/22 09:48> General appearance is no acute distress Head is normocephalic atraumatic Neck is supple The chest is clear to auscultation bilateral, no pleuritic discomfort with breathing Heart no murmur Abdomen soft nontender Extremities full range of motion x4 Lower legs bilateral, no edema, there is mild tenderness in both calves, the skin is intact it is neurovascular intact distal there is no significant redness no lymphangitis no wounds <KRYSTLE Garza - Last Filed: 08/26/22 09:48> Course Course Course Narrative: RME: Patient is a 76-year-old female who presents to the emergency department from ultrasound; had US of right lower extremity ordered by Dr. Lacy by her report, concern for worsening DVT, US installation and service technician concerned for DVT to the right popliteal vein. Patient was evaluated in the emergency department May 2022, had nonocclusive DVT to the right and left popliteal veins at that time Coumadin was discontinued and she was started on Lovenox, currently prescribed Xarelto. PE: vital signs stable, 2+ DP/PT pulse bilaterally Plan: basic labs, radiology interpretation RLE US, f/u with vascular/ hematology <Shana Lutz CNP - Last Filed: 08/03/22 13:31> RME: Patient is a 76-year-old female who presents to the emergency department from ultrasound; had US of right lower extremity ordered by Dr. Lacy by her report, concern for worsening DVT, US installation and service technician concerned for DVT to the right popliteal vein. Patient was evaluated in the emergency department May 2022, had nonocclusive DVT to the right and left popliteal veins at that time Coumadin was discontinued and she was started on Lovenox, currently prescribed Xarelto. PE: vital signs stable, 2+ DP/PT pulse bilaterally Plan: basic labs, radiology interpretation RLE US, f/u with vascular/ hematology Patient is compliant with anticoagulation Had routine follow-up ultrasound with her doctor which was interpreted as possible new clot and patient was sent to the ER Patient does have a filter in place and is compliant with anticoagulants and is not aware of any changes in her lower extremities, no problems breathing In the ER I called Radiology to get an official interpretation of the ultrasound and did speak with the radiologist There was no evidence of DVT in the right lower leg The left popliteal vein was not fully compressible but there was color Doppler flow seen Similar findings were present on the patient's prior study and these likely represent chronic changes This was confirmed verbally on discussion with the radiologist As there seems to be no acute change the patient was discharged to follow with her doctor and vascular surgeon The case was discussed with Dr. Tressa still who was covering vascular on that day <KRYSTLE Garza - Last Filed: 08/26/22 09:48> Medical Decision Making Lab Data Result Diagrams: 08/03/22 14:18 08/03/22 14:18 <Shana Lutz CNP - Last Filed: 08/03/22 13:31> Labs: Lab Results 08/03/22 08/03/22 08/03/22 Range/Units 14:18 14:18 14:18 WBC Cancelled RBC Cancelled Hgb Cancelled Hct Cancelled MCV Cancelled MCH Cancelled MCHC Cancelled RDW Cancelled Plt Count Cancelled MPV Cancelled Immature Gran % (Auto) Cancelled Neut % (Auto) Cancelled Lymph % (Auto) Cancelled [place] % (Auto) Cancelled Eos % (Auto) Cancelled Baso % (Auto) Cancelled Lymph # (Auto) Cancelled [place] # (Auto) Cancelled Eos # (Auto) Cancelled Baso # (Auto) Cancelled Abs Immat Gran (auto) Cancelled Absolute Neuts (auto) Cancelled Absolute Nucleated RBC Cancelled Nucleated RBC % (auto) Cancelled PT 11.5 (10.0-13.1) SEC INR 1.0 D (0.9-1.1) Sodium Cancelled Potassium Cancelled Chloride Cancelled Carbon Dioxide Cancelled Anion Gap Cancelled BUN Cancelled Creatinine Cancelled Estim Creat Clear Calc Cancelled Estimated GFR Cancelled Random Glucose Cancelled Calcium Cancelled Total Bilirubin Cancelled AST Cancelled ALT Cancelled Alkaline Phosphatase Cancelled Total Protein Cancelled Albumin Cancelled <Shana Lutz CNP - Last Filed: 08/03/22 13:31> Lab Results 08/03/22 08/03/22 08/03/22 Range/Units 14:18 14:18 14:18 WBC Cancelled RBC Cancelled Hgb Cancelled Hct Cancelled MCV Cancelled MCH Cancelled MCHC Cancelled RDW Cancelled Plt Count Cancelled MPV Cancelled Immature Gran % (Auto) Cancelled Neut % (Auto) Cancelled Lymph % (Auto) Cancelled [place] % (Auto) Cancelled Eos % (Auto) Cancelled Baso % (Auto) Cancelled Lymph # (Auto) Cancelled [place] # (Auto) Cancelled Eos # (Auto) Cancelled Baso # (Auto) Cancelled Abs Immat Gran (auto) Cancelled Absolute Neuts (auto) Cancelled Absolute Nucleated RBC Cancelled Nucleated RBC % (auto) Cancelled PT 11.5 (10.0-13.1) SEC INR 1.0 D (0.9-1.1) Sodium Cancelled Potassium Cancelled Chloride Cancelled Carbon Dioxide Cancelled Anion Gap Cancelled BUN Cancelled Creatinine Cancelled Estim Creat Clear Calc Cancelled Estimated GFR Cancelled Random Glucose Cancelled Calcium Cancelled Total Bilirubin Cancelled AST Cancelled ALT Cancelled Alkaline Phosphatase Cancelled Total Protein Cancelled Albumin Cancelled <KRYSTLE Garza - Last Filed: 08/26/22 09:48> Discharge Plan Discharge Clinical Impression: DVT (deep venous thrombosis) <Shana Lutz CNP - Last Filed: 08/03/22 13:31> Patient Disposition: Home, Self-Care <Shana Lutz CNP - Last Filed: 08/03/22 13:31> Additional Instructions: Ultrasound done today discussed with radiologist did not show any new clot Radiologist said there is old chronic clot nothing new , and that the ultrasound today is the same as the previous Continue present treatment and follow with Dr. Lacy to discuss if there is any further treatment needed Return any time for difficulty breathing leg swelling any worse condition or any concerns <Shana Lutz CNP - Last Filed: 08/03/22 13:31> Prescriptions: No Action Xarelto 20 mg Tablet 20 mg PO DAILY Qty: 30 3RF Rx Instructions: must administer with evening meal lamotrigine 25 mg tablet 25 mg PO BID <Shana Luzt CNP - Last Filed: 08/03/22 13:31> Interventions: ED Discharge Assessment Last Done: 08/03/22 20:47 <Shana Lutz CNP - Last Filed: 08/03/22 13:31> Discharge Date/Time: 08/03/22 20:47 <Shana Lutz CNP - Last Filed: 08/03/22 13:31>
[2022-08-03 13:50] VITALS: BP 145/88; PULSE 71; RESP 17; TEMP 35.7; O2SAT 99; BMI 25.0
[2022-08-03 14:31] LABS: Prothrombin Time 11.5 SEC (10.0-13.1)
--- NOTE | 2022-08-03 17:08 | MHC.EDTECH ---
went to go draw labs on pt. when needle was placed in arm pt screamed and tried to move arm away. due to staff and pt saftey needle was removed. rn aware
--- NOTE | 2022-08-03 17:12 | PC.NURSE ---
Pt adamantly refusing lab work, upset about how long the wait time was and that she is just going to leave.
== END 2022-08-03 20:47 | disposition home or self-care (01) ==
LOC: HO.ED 13:15
PROVIDERS: Nurse Practitioner Family; Emergency Provider Emergency Medicine; Visit Provider Surgery Vascular Surgery
DX: I82.4Z1 Acute embolism and thrombosis of unspecified deep veins of right distal lower extremity (principal); R60.0 Localized edema; Z79.899 Other long term (current) drug therapy; Z79.01 Long term (current) use of anticoagulants
CPT/HCPCS: 36415; 85610; 93970; 99282; 99284

== ENCOUNTER → 2022-09-01 13:42 | Outpatient (BNVA) | payer OTHER, SELFPAY | PROVIDERS: Visit Provider Surgery Vascular Surgery | DX: I83.11 Varicose veins of right lower extremity with inflammation (principal) | CPT/HCPCS: 99212 ==